=== PATIENT | female | born 1965 | race Caucasian/White ===

== ENCOUNTER 2019-03-08 16:42 | Inpatient (IN) ==
--- NOTE | 2019-03-08 17:29 | Emergency Department Note ---
Entered by Arun Fernandes acting as a scribe for Morales Devine MD History of Present Illness General Chief complaint: Mental Health Evaluation Stated complaint: MENTAL HEALTH EVAL Time Seen by Provider: 03/08/19 16:54 Source: patient History of Present Illness Onset (ago): month(s) 5 Location: head (suicidal ideations with a plan) Pain Consistency: + intermittent Maximum Pain Intensity: 7 Exacerbated By: + other (recent loss of loved ones) Associated symptoms: + denies other symptoms (depression, hopelessness), + fever/chills, + headaches, + nausea/vomiting (positive nausea, negative vo miting) and + other (panic attacks, cramping) The patient is a 54 year old F who presents to the Emergency Room with complaints of intermittent intermittent suicidal ideations with a plan that started 5 months ago. The patient states that she has a history of PTSD and anxiety. She notes that her problems are worsened due to her experiencing recent loss of her daughter, mother, aunt, and clients. 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 She notes that she has started to see a grief counselor. She states that she was recently on medications prescribed to her by her PCP for her symptoms. She adds that she was taken off of them two weeks ago because she did not like the side-effects. She notes that she was referred to the ED today by her therapist. She states that she is currently experiencing panic attacks, fever, chills, headaches, nausea, and cramping. She denies experiencing depression and hopelessness. She states that she does not want to state her suicidal plan but gives an example that she would drive her car very fast and crash. She notes that the last time she tried to hurt herself was in high school by drinking a lot of alcohol. She adds that the last time she was hospitalized was in high school. Home Medications Home Medications Medication Instructions Recorded Confirmed Type albuterol sulfate HFA 90 2 puffs INH QID PRN #6.7 gm 02/26/19 03/08/19 Rx mcg/actuation aerosol inhaler escitalopram 10 mg tablet 10 mg PO DAILY #30 tab 02/26/19 03/08/19 Rx fluticasone propionate 110 1 puffs INH BID #12 gm 02/26/19 03/08/19 Rx mcg/actuation HFA aerosol inhaler montelukast 10 mg tablet 10 mg PO QPM #90 tab 02/26/19 03/08/19 Rx naproxen 500 mg tablet 500 mg PO Q12H PRN #60 tab 02/26/19 03/08/19 Rx omeprazole 20 mg capsule,delayed 20 mg PO DAILY #90 cap 02/26/19 03/08/19 Rx release tramadol 50 mg tablet 50 mg PO BID PRN #60 tab 02/26/19 03/08/19 Rx Allergies Allergy/AdvReac Type Severity Reaction Status Date / Time No Known Allergies Allergy Verified 03/08/19 17:20 Past Med/Surg History Medical History Anxiety (Chronic) PTSD (post-traumatic stress disorder) (Chronic) Family History Other No significant family history Social History Preferred Language: Uzbek Communication Ability: Effective Reducing System Operator Required: No Beliefs That Will Affect Care: None Feels Safe at Home: Yes Smoking Status: Never smoker Review of Systems See HPI for pertinent positives & negatives. and A total of 10 systems reviewed and were otherwise negative Physical Exam Vital Signs Vital Signs - 24 hr 03/08/19 16:46 03/08/19 19:00 Temperature 36.9 C Temperature Source Oral Sepsis Recent Fever Within 48 Hours No Sepsis New/Unexplained Change in Mental Status No Sepsis Action Taken by Nursing No Action Required Pulse Rate 109 H Pulse Rate [Right Finger] 90 Respiratory Rate 18 20 Blood Pressure 149/91 H Blood Pressure [Right Arm] 140/74 Blood Pressure Mean 110 Blood Pressure Mean [Right Arm] 96 Pulse Oximetry 97 97 Oxygen Delivery Method Room Air Room Air GENERAL: Awake, alert, melancholy appearing, no distress HENT: Normocephalic, atraumatic. TM's normal. Oropharynx unremarkable. EYES: PERRL. EOMI. Normal conjunctiva. Sclera non-icteric. NECK: Supple. No nuchal rigidity. FROM. No JVD or bruit. RESPIRATORY: CTAB CARDIAC: RRR. ABDOMEN: Soft, non distended. No tenderness to palpation. No rebound or guarding. No masses. RECTAL: Deferred. MUSCULOSKELETAL: Unremarkable. No edema. No discoloration. Gross motor strength symmetric. NEURO: Normal sensorium. No sensory or motor deficits noted. SKIN: No rash or jaundice noted. LYMPH: No adenopathy psych: depressed affect, positive suicidal ideation and plan, yet denies hopeless and depression Course 1658: The patient was evaluated in room A7. A complete history and physical exam was performed. 1839: I medically cleared the patient. 1937: The patient has been accepted for inpatient treatment at [address] [place] [address]. Administered Medications Fluticasone Propionate (Flovent Hfa 110mch) 1 puffs INH BID ISAIAH Stop: 04/07/19 20:59 Last Admin: 03/08/19 22:04 Dose: 1 puffs Documented by: [id number] Montelukast Sodium (Singulair) 10 mg PO QPM ISAIAH Stop: 04/07/19 20:59 Last Admin: 03/08/19 22:06 Dose: 10 mg Documented by: [id number] Naproxen (Naprosyn) 500 mg PO Q12H PRN PRN Reason: pain Stop: 04/07/19 19:23 Last Admin: 03/08/19 22:05 Dose: 500 mg Documented by: [id number] Medical Decision Making Differential Diagnosis Differential diagnosis includes: mood disorder, infection, hypoglycemia, electrolyte abnormalities, cardiac sources, intracerebral event, toxicologic, ne urologic, as well as others were entertained. Medical Records Attestation: I reviewed the patient's medical records. Home Medications Current Medication List: was personally reviewed by me Laboratory Data Attestation: I reviewed the patient's lab results. Result diagrams: 03/08/19 17:30 03/08/19 17:30 Lab Results 03/08/19 03/08/19 03/08/19 Range/Units 17:28 17:28 17:30 WBC 8.67 (4.8-10.8) K/uL RBC 5.33 (4.2-5.4) M/uL Hgb 15.2 (12.0-16.0) g/dL Hct 44.6 (37-47) % MCV 83.7 (80-100) fL MCH 28.5 (25-34) pg MCHC 34.1 (32-36) g/dL RDW Std Deviation 39.9 (36.4-46.3) fL RDW Coeff of Vale 13.4 (11.5-14.5) % Plt Count 295 (130-400) K/uL MPV 9.1 (7.4-10.4) fL Immature Gran % (Auto) 0.3 % Neut % (Auto) 71.7 % Lymph % (Auto) 19.1 % Luce % (Auto) 6.7 % Eos % (Auto) 2.0 % Baso % (Auto) 0.2 % Immature Gran # (Auto) 0.03 H (0.00-0.02) K/uL Neut # (Auto) 6.21 (1.4-6.5) K/uL Lymph # (Auto) 1.66 (1.2-3.4) K/uL Luce # (Auto) 0.58 (0.11-0.59) K/uL Eos # (Auto) 0.17 (0-0.5) K/uL Baso # (Auto) 0.02 (0-0.2) K/uL Sodium (136-145) mmol/L Potassium (3.5-5.1) mmol/L Chloride (98-107) mmol/L Carbon Dioxide (21-32) mmol/L Anion Gap (3-11) BUN (7-18) mg/dl Creatinine (0.6-1.2) mg/dl Est Cr Clr Drug Dosing ml/min Est GFR ( Amer) Est GFR (Non-Af Amer) BUN/Creatinine Ratio (10-20) Glucose (70-99) mg/dl Calcium (8.5-10.1) mg/dl Total Bilirubin (0.2-1) mg/dl AST (15-37) U/L ALT (12-78) U/L Alkaline Phosphatase (45-117) U/L Total Protein (6.4-8.2) gm/dl Albumin (3.4-5.0) gm/dl Globulin (2.5-4.0) gm/dl Albumin/Globulin Ratio (0.9-2) TSH (0.300-4.500) uIu/ml HCG, Qual (Negative) Urine Color Yellow Urine Appearance Clear (Clear) Urine pH 6.5 (4.5-7.5) Ur Specific Alanson 1.009 (1.000-1.030) Urine Protein Negative (Negative) Urine Glucose (UA) Negative (Negative) Urine Ketones Negative (Negative) Urine Blood 2+ H (Negative) Urine Nitrite Negative (Negative) Urine Bilirubin Negative (Negative) Urine Urobilinogen Negative (Negative) Ur Leukocyte Esterase Negative (Negative) Urine WBC (Auto) 1-5 (0-5) /hpf Urine RBC (Auto) 0-4 (0-4) /hpf U Hyaline Cast (Auto) 0 (0-5) /lpf U Epithel Cells (Auto) 5-10 H (0-5) /lpf Urine Bacteria (Auto) Negative (Negative) Salicylates (2.8-20) mg/dl Urine Opiates Screen Neg (Neg) Ur Methadone, Qual Neg (Neg) Acetaminophen (10-30) ug/ml Urine Barbiturates Neg (Neg) Ur Phencyclidine (PCP) Neg (Neg) U Amphetamin/Meth Scrn Neg (Neg) MDMA (Ecstasy) Screen Neg (Neg) U Benzodiazepines Scrn Neg (Neg) Ur Cocaine Metabolite Neg (Neg) U Marijuana (THC) Screen Neg (Neg) Ethyl Alcohol mg/dL (0-3) mg/dl 03/08/19 03/08/19 03/08/19 Range/Units 17:30 17:30 17:30 WBC (4.8-10.8) K/uL RBC (4.2-5.4) M/uL Hgb (12.0-16.0) g/dL Hct (37-47) % MCV (80-100) fL MCH (25-34) pg MCHC (32-36) g/dL RDW Std Deviation (36.4-46.3) fL RDW Coeff of Vale (11.5-14.5) % Plt Count (130-400) K/uL MPV (7.4-10.4) fL Immature Gran % (Auto) % Neut % (Auto) % Lymph % (Auto) % Luce % (Auto) % Eos % (Auto) % Baso % (Auto) % Immature Gran # (Auto) (0.00-0.02) K/uL Neut # (Auto) (1.4-6.5) K/uL Lymph # (Auto) (1.2-3.4) K/uL Luce # (Auto) (0.11-0.59) K/uL Eos # (Auto) (0-0.5) K/uL Baso # (Auto) (0-0.2) K/uL Sodium 137 (136-145) mmol/L Potassium 4.5 (3.5-5.1) mmol/L Chloride 102 (98-107) mmol/L Carbon Dioxide 31 (21-32) mmol/L Anion Gap 4.0 (3-11) BUN 19 H (7-18) mg/dl Creatinine 1.10 (0.6-1.2) mg/dl Est Cr Clr Drug Dosing 58.9 ml/min Est GFR ( Amer) 65.5 Est GFR (Non-Af Amer) 56.5 BUN/Creatinine Ratio 17.0 (10-20) Glucose 104 H (70-99) mg/dl Calcium 9.4 (8.5-10.1) mg/dl Total Bilirubin 0.4 (0.2-1) mg/dl AST 19 (15-37) U/L ALT 23 (12-78) U/L Alkaline Phosphatase 125 H (45-117) U/L Total Protein 8.1 (6.4-8.2) gm/dl Albumin 4.5 (3.4-5.0) gm/dl Globulin 3.6 (2.5-4.0) gm/dl Albumin/Globulin Ratio 1.3 (0.9-2) TSH 1.200 (0.300-4.500) uIu/ml HCG, Qual (Negative) Urine Color Urine Appearance (Clear) Urine pH (4.5-7.5) Ur Specific Alanson (1.000-1.030) Urine Protein (Negative) Urine Glucose (UA) (Negative) Urine Ketones (Negative) Urine Blood (Negative) Urine Nitrite (Negative) Urine Bilirubin (Negative) Urine Urobilinogen (Negative) Ur Leukocyte Esterase (Negative) Urine WBC (Auto) (0-5) /hpf Urine RBC (Auto) (0-4) /hpf U Hyaline Cast (Auto) (0-5) /lpf U Epithel Cells (Auto) (0-5) /lpf Urine Bacteria (Auto) (Negative) Salicylates < 1.7 L (2.8-20) mg/dl Urine Opiates Screen (Neg) Ur Methadone, Qual (Neg) Acetaminophen < 2 L (10-30) ug/ml Urine Barbiturates (Neg) Ur Phencyclidine (PCP) (Neg) U Amphetamin/Meth Scrn (Neg) MDMA (Ecstasy) Screen (Neg) U Benzodiazepines Scrn (Neg) Ur Cocaine Metabolite (Neg) U Marijuana (THC) Screen (Neg) Ethyl Alcohol mg/dL < 3.0 (0-3) mg/dl 03/08/19 Range/Units 17:30 WBC (4.8-10.8) K/uL RBC (4.2-5.4) M/uL Hgb (12.0-16.0) g/dL Hct (37-47) % MCV (80-100) fL MCH (25-34) pg MCHC (32-36) g/dL RDW Std Deviation (36.4-46.3) fL RDW Coeff of Vale (11.5-14.5) % Plt Count (130-400) K/uL MPV (7.4-10.4) fL Immature Gran % (Auto) % Neut % (Auto) % Lymph % (Auto) % Luce % (Auto) % Eos % (Auto) % Baso % (Auto) % Immature Gran # (Auto) (0.00-0.02) K/uL Neut # (Auto) (1.4-6.5) K/uL Lymph # (Auto) (1.2-3.4) K/uL Luce # (Auto) (0.11-0.59) K/uL Eos # (Auto) (0-0.5) K/uL Baso # (Auto) (0-0.2) K/uL Sodium (136-145) mmol/L Potassium (3.5-5.1) mmol/L Chloride (98-107) mmol/L Carbon Dioxide (21-32) mmol/L Anion Gap (3-11) BUN (7-18) mg/dl Creatinine (0.6-1.2) mg/dl Est Cr Clr Drug Dosing ml/min Est GFR ( Amer) Est GFR (Non-Af Amer) BUN/Creatinine Ratio (10-20) Glucose (70-99) mg/dl Calcium (8.5-10.1) mg/dl Total Bilirubin (0.2-1) mg/dl AST (15-37) U/L ALT (12-78) U/L Alkaline Phosphatase (45-117) U/L Total Protein (6.4-8.2) gm/dl Albumin (3.4-5.0) gm/dl Globulin (2.5-4.0) gm/dl Albumin/Globulin Ratio (0.9-2) TSH (0.300-4.500) uIu/ml HCG, Qual Negative (Negative) Urine Color Urine Appearance (Clear) Urine pH (4.5-7.5) Ur Specific Alanson (1.000-1.030) Urine Protein (Negative) Urine Glucose (UA) (Negative) Urine Ketones (Negative) Urine Blood (Negative) Urine Nitrite (Negative) Urine Bilirubin (Negative) Urine Urobilinogen (Negative) Ur Leukocyte Esterase (Negative) Urine WBC (Auto) (0-5) /hpf Urine RBC (Auto) (0-4) /hpf U Hyaline Cast (Auto) (0-5) /lpf U Epithel Cells (Auto) (0-5) /lpf Urine Bacteria (Auto) (Negative) Salicylates (2.8-20) mg/dl Urine Opiates Screen (Neg) Ur Methadone, Qual (Neg) Acetaminophen (10-30) ug/ml Urine Barbiturates (Neg) Ur Phencyclidine (PCP) (Neg) U Amphetamin/Meth Scrn (Neg) MDMA (Ecstasy) Screen (Neg) U Benzodiazepines Scrn (Neg) Ur Cocaine Metabolite (Neg) U Marijuana (THC) Screen (Neg) Ethyl Alcohol mg/dL (0-3) mg/dl ECG Data Attestation: I personally reviewed and interpreted this ECG as follows: Indication: other (suicidal ideation) Rate (beats per minute): 85 Rhythm: normal sinus Findings: + other (normal axis); no acute ischemic change Blood Pressure Blood Pressure Findings: Normal blood pressure Blood Pressure Disposition: did not require urgent referral MDM Narrative The patient is a pleasant 54-year-old woman with a past medical history of PTSD, anxiety and depression who presents emergency department with worsening thoughts of suicidal ideation with plan referred to emergency department by her therapist per hpi. Of note, patient reports her symptoms have worsened to the degree that she does not trust herself and asked her friend to drive her to the hospital as one possible plan she had mention was driving recklessly without care of what could have been. Arrival the patient is melancholy appearing but no acute distress, afebrile stable vital signs. Patient has a depressed affect and reports suicidal ideation with multiple possible plans. However, the patient denies any overt depression or hopelessness. However she does become tearful when discussing the recent deaths over the past 6 months of friends and family and clients. I discussed with patient that her symptoms are concerning and that her situation certainly warrants inpatient psychiatric admission. After some deliberation the patient reported she would be agreeable. However should the patient change her mind she certainly would meet criteria for a 302 admission given her clear risk to herself as well as others. WBC, H/H, platelets wnl. Chemistry without acidosis. LFTs and electrolytes unremarkable. UA negative. The patient was medically cleared. The patient was accepted to [facility] [address]. under vol untary admission with 201 signed. Impression & Plan Suicidal ideation Discharge Plan Visit Data *Final* Discharge Date/Time: 03/08/19 19:31 Chief Complaint: Mental Health Evaluation Stated Complaint: MENTAL HEALTH EVAL ED Provider: Morales Devine Discharge Problem: Suicidal ideation Patient Disposition: Admitted As Inpatient Discharge Instructions Interventions: ED Discharge Assessment Last Done: 03/08/19 19:31 The scribe's documentation has been prepared under my direction and personally reviewed by me in its entirety. I confirm that the note above accurately reflects all work, treatment, procedures, and medical decision making performed by me.
[2019-03-08 17:45] LABS: Appearance Urine Clear (Clear); Bacteria Urine Automated Negative (Negative); Bilirubin Urine Negative (Negative); Blood Urine 2+ (Negative); Cast Urine Automated 0 /lpf (0-5); Color Urine Yellow; Glucose Urine UA Negative (Negative); Ketones Urine Negative (Negative); Leukocyte Esterase Urine Negative (Negative); Nitrite Urine Negative (Negative); Protein Urine Negative (Negative); RBC Urine Automated 0-4 /hpf (0-4); Specific Gravity Urine 1.009 (1.000-1.030); Urobilinogen Urine Negative (Negative); pH Urine 6.5 (4.5-7.5)
[2019-03-08 17:56] LABS: Basophils # (auto) 0.02 K/uL (0-0.2); Basophils % (auto) 0.2 %; Eosinophils # (auto) 0.17 K/uL (0-0.5); Hematocrit (blood only) 44.6 % (37-47); Hemoglobin 15.2 g/dL (12.0-16.0); Immature Granulocytes # (auto) 0.03 K/uL (0.00-0.02); Immature Granulocytes % (auto) 0.3 %; Lymphocytes # (auto) 1.66 K/uL (1.2-3.4); Lymphocytes % (auto) 19.1 %; Mean Corpuscular Hgb Conc 34.1 g/dL (32-36); Mean Corpuscular Volume 83.7 fL (80-100); Mean Platelet Volume 9.1 fL (7.4-10.4); Monocytes # (auto) 0.58 K/uL (0.11-0.59); Monocytes % (auto) 6.7 %; Neutrophils # (auto) 6.21 K/uL (1.4-6.5); Neutrophils % (auto) 71.7 %; Platelet Count 295 K/uL (130-400); RDW Coefficient of Variation 13.4 % (11.5-14.5); RDW Standard Deviation 39.9 fL (36.4-46.3); Red Blood Count 5.33 M/uL (4.2-5.4); White Blood Count 8.67 K/uL (4.8-10.8)
[2019-03-08 18:01] LABS: Amphetamines+Metham, Urine Neg (Neg); Barbiturates, Urine Neg (Neg); Benzodiazepine, Urine Neg (Neg); Cocaine, Urine Neg (Neg); MDMA (Ecstacy), Urine Neg (Neg); Methadone, Urine Neg (Neg); Opiate, Urine Neg (Neg); Phencyclidine, Urine Neg (Neg)
[2019-03-08 18:07] LABS: Albumin Level 4.5 gm/dl (3.4-5.0); Calcium 9.4 mg/dl (8.5-10.1); Creatinine Clr Calc Pharmacy 58.9 ml/min; Est GFR (African American) 65.5; Est GFR (Non-African American) 56.5; Potassium 4.5 mmol/L (3.5-5.1)
[2019-03-08 18:11] LABS: Pregnancy Test, Serum Negative (Negative)
[2019-03-08 18:13] LABS: Acetaminophen < 2 ug/ml (10-30); Salicylate < 1.7 mg/dl (2.8-20)
[2019-03-08 18:18] LABS: Albumin Globulin Ratio 1.3 (0.9-2); Bilirubin,Total 0.4 mg/dl (0.2-1); Globulin 3.6 gm/dl (2.5-4.0); Total Protein 8.1 gm/dl (6.4-8.2)
[2019-03-08] MEDS ORDERED: BISMUTH SUBSALICYLATE PER ML OMNICELL CHARGE PO PRN (19:21)
[2019-03-08] MEDS ORDERED: SODIUM CHLORIDE 0.65% NA SOLN 45 ML (OCEAN) PRN (19:21)
[2019-03-08] MEDS ORDERED: MAGNESIUM HYDROXIDE SUSP 30 ML UDC PO PRN (19:21)
[2019-03-08] MEDS ORDERED: ACETAMINOPHEN 325 MG TAB PO PRN (19:21)
[2019-03-08] MEDS ORDERED: ALUMINUM/MAGNESIUM SUSP 30 ML UDC PO PRN (19:21)
[2019-03-08] MEDS ORDERED: TRAMADOL HCL 50 MG TABLET PO PRN (19:24)
[2019-03-08] MEDS ORDERED: ALBUTEROL HFA 8 GM INHALER INH PRN (19:24)
[2019-03-08] MEDS: FLUTICASONE HFA 110MCG INHALER INH SCH (22:04)
[2019-03-08] MEDS: NAPROXEN 250 MG TAB PO PRN (22:05)
[2019-03-08] MEDS: MONTELUKAST SODIUM 10 MG TABLET PO SCH (22:06)
[2019-03-09] MEDS: FLUTICASONE HFA 110MCG INHALER INH SCH ×2 (07:53→18:42)
[2019-03-09] MEDS: PANTOprazole 40 MG TAB PO SCH (07:53)
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
[2019-03-09] MEDS: NAPROXEN 250 MG TAB PO PRN ×2 (11:31→21:37)
[2019-03-09] MEDS: ESCITALOPRAM OXALATE 10 MG TAB PO SCH (18:38)
[2019-03-09] MEDS: MONTELUKAST SODIUM 10 MG TABLET PO SCH (18:42)
[2019-03-10] MEDS: FLUTICASONE HFA 110MCG INHALER INH SCH ×2 (08:52→21:21)
[2019-03-10] MEDS: PANTOprazole 40 MG TAB PO SCH (08:52)
[2019-03-10] MEDS: NAPROXEN 250 MG TAB PO PRN (08:56)
--- NOTE | 2019-03-10 16:39 | Psychiatric Progress Note ---
Date of Service March 10, 2019 Impression / Recommendations Impression 54-year-old female admitted voluntarily for inpatient psychiatric treatment. Patient requested to sign her 72-hour notice within 24 hours of admission. As of 03/10/2019 patient acknowledges worsening suicidal ideation and unable to contract for safety outside of the hospital environment. She describes symptoms of likely PTSD but remains unwilling to disclose nature of trauma history. (1) Suicidal ideation: 03/09 - Admitted to a locked inpatient behavioral health unit, on q15 minute safety checks - Encourage medication initiation/adjustments as indicated - Encourage participation in group and recreational therapies - Gather collateral information from outpatient providers - Suggest family meeting to involve outpatient supports in safety planning - Arrange appropriate aftercare 03/10 -Patient now admits to worsening suicidal ideation and states "I cannot guarantee that I would not commit suicide" -Patient remains on voluntary status with 72-hour notice to come to on March 12 at 0910. Pending clinical status before that time, we may need to consider involuntary commitment if she is unwilling to rescind the 72-hour notice (2) Anxiety: 03/09 - Hydroxyzine available as needed for anxiety - Continue escitalopram 10mg qHS, patient hesitant to consider medication adjustments, anxiety improved with escitalopram - Will attempt to request records for more accurate med history; however, was seen several years ago at [facility] and case is likely closed - Develop healthy and effective coping strategies - Follow-up with PCP (as trusts provider) or outpatient psychiatrist for ongoing medication management (3) PTSD (post-traumatic stress disorder): 03/09 - Continue escitalopram 10mg qHS - Continue to assist patient in coping with previous trauma history - Assist with development of healthy and effective coping strategies - Recommending ongoing counseling on outpatient basis 03/10 -Trial Remeron 7.5 mg p.o. nightly for anxiolysis, sleep, off label GI benefit, and depression. -Patient would like to consider alternatives to the Lexapro as she fears that it has contributed to headaches and nausea. Available records so far indicate anxiety exacerbation with dose reduction trial. She is unable to recall prior treatment trials. We will see if we can obtain records from previous provider and in the meantime trialing the Remeron as above -We will plan to accommodate presence of a female friend for psychiatric interview tomorrow before the primary team returns on Tuesday to facilitate her comfort (4) Grief: 03/09 - Several recent deaths of close friends/family - mom, aunt, clients, mentor, and oriental orthodox members - Assist patient in processing grief and coping with loss - Encourage ongoing follow-up with outpatient grief counselor (5) History of recent fall: 03/09 - Continue home medications of naproxen and tramadol as needed for head and neck pain related to fall 03/10 -Reviewed medical progress note from Dr. Suarez's office regarding medical workup for fall and occipital head injury. Head CT on 02/27/19 negative. Given symptom cluster of headaches, nausea, cognitive fogginess, blurry vision, it sounds certainly possible that she has experienced some mild postconcussive symptomatology which could also be impacting mood. Inventory Assets Strengths: Supportive family, awareness of need for treatment, recent extended period of symptoms control off medications Needs: Development of effective coping strategies, ongoing processing of grief and loss, honest communication with /family Risk Factors Assessment Male: No : Yes Health Problems: No Mental Health Diagnoses: Yes Substance Use Disorders: No Previous Attempt: Yes (remote history in ) Previous Psychiatric Hospitalization: Yes Hopelessness: No Smoker: No Protective Factors Assessment Judaism Beliefs: Yes : Yes Responsible for Young Children: Yes (young adult children, grandson) 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 Review of Systems Notes Nausea without emesis, denies fever, denies diarrhea. Headaches. Sleep Information Total Hours of Sleep: 4.5 Sleep Comments: pt SHLOMO @0300 and thereafter. pt sat in the dayarea looking at her paperwork. pt states of not being sleepy. pt on q-15 minute checks Meal Information Percent Meal Consumed - Breakfast: 50 Percent Meal Consumed - Lunch: 100 Nutrition Comment: meal was dated and labeled, covered and refrigerated Medication Trials Unrecalled Subjective Subjective Patient was seen & assessed and interval progress reviewed with Treatment Team. Patient has signed 72-hour notice which will come due on the at 09 10. She has not been participating in unit programming. Isolating in her room. She initially refuses psychiatric reassessment today by male provider however she is ultimately willing in the company of her friend and female nursing staff. Interview conducted with therapeutic approach in mind. Patient remains unwilling to disclose the nature of her historical trauma which she states is eroding her marriage and causing her significant distress including nightmares, frequent waking feeling anxious overnight, and flashbacks when triggered. She describes efforts to avoid thinking about her trauma history but knows that she has to deal with it. She tells me that she had been doing very well emotionally before the of her mother last year followed shortly after by the of her aunt. She denies unfinished business with her loved ones. Subsequent to those losses her mood has been declining and she has been feeling more anxious. She acknowledges episodic suicidal ideation for years but has never acted on it. Suicidal ideation has worsened since admission and she states that she cannot guarantee that she would not try to commit suicide if she was outside of the hospital. As such, she acknowledges need for hospitalization presently and states that she signed the 72-hour notice because she felt panicked. Hopefully she will be willing to rescind this and maintain voluntary status. She complains that she felt "like a number" when involved in psychiatric care with unrecalled provider, possibly at [facility], several years ago. No records are available from that institution for review. She perceives herself as medication sensitive and believes she was tried on 6 or 7 psychotropic medications before she quit in the past secondary to side effects. She has found a positive therapeutic rapport with a grief counselor through her oriental orthodox. She expresses continued reluctance to see a male provider but was willing to see the undersigned again tomorrow in the presence of her friend who was highly encouraging. Physical Exam Psychiatric Orientation: alert and + guarded Apperance: appropriately dressed Eye Contact: + poor eye contact Motor Behavior: + psychomotor retardation Speech: normal rate/rhythm/volume of speech Affect: + tearful affect Mood: + depressed mood and + anxious mood Thought Process: goal directed thought process; no flight of ideas Thought Content: + preoccupation (Undisclosed trauma history. Negative for obvious delusions. 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 Does not disclose specific plan. Estimated Intelligence: average estimated intelligence Insight: + limited insight Judgement: + limited judgement Vital Signs (Past 24 Hours) Last Vital Signs Temp 36.6 C 03/10/19 06:15 Pulse 96 H 03/10/19 06:16 Resp 18 03/10/19 06:15 BP 120/76 03/10/19 06:16 Pulse Ox 97 03/08/19 19:00 Results & Data Current Inpatient Medications Current Inpatient Medications: Current Inpatient Medications Acetaminophen (Tylenol) 650 mg PO Q4H PRN PRN Reason: Headache or Minor Fever Stop: 04/07/19 19:20 Al Hydrox/Mg Hydrox/Simethicone (Maalox) 30 ml PO Q4H PRN PRN Reason: GI Upset Stop: 04/07/19 19:20 Last Admin: 03/10/19 05:21 Dose: 30 ml Documented by: Albuterol (Ventolin Hfa) 2 puffs INH QID PRN PRN Reason: shortness of breath or wheezing Stop: 04/07/19 19:23 Bismuth Subsalicylate (Kaopectate) 15 ml PO PRN PRN PRN Reason: Loose Stool Stop: 04/07/19 19:20 Escitalopram Oxalate (Lexapro) 10 mg PO 1900 [facility] Stop: 04/08/19 18:59 Last Admin: 03/09/19 18:38 Dose: 10 mg Documented by: Fluticasone Propionate (Flovent Hfa 110mch) 1 puffs INH BID ISAIAH Stop: 04/07/19 20:59 Last Admin: 03/10/19 08:52 Dose: 1 puffs Documented by: Hydroxyzine HCl (Vistaril) 50 mg PO HSZ PRN PRN Reason: Insomnia Stop: 04/07/19 19:20 Hydroxyzine HCl (Vistaril) 25 mg PO Q4H PRN PRN Reason: Anxiety Stop: 04/07/19 19:20 Magnesium Hydroxide (Milk Of Magnesia) 30 ml PO DAILY PRN PRN Reason: Heartburn Stop: 04/07/19 19:20 Montelukast Sodium (Singulair) 10 mg PO QPM ISAIAH Stop: 04/07/19 20:59 Last Admin: 03/09/19 18:42 Dose: 10 mg Documented by: Naproxen (Naprosyn) 500 mg PO Q12H PRN PRN Reason: pain Stop: 04/07/19 19:23 Last Admin: 06/22/19 08:56 Dose: 500 mg Documented by: Pantoprazole Sodium (Protonix) 40 mg PO QAM ISAIAH Stop: 04/08/19 08:59 Last Admin: 03/10/19 08:52 Dose: 40 mg Documented by: Sodium Chloride (Saline Nasal) 1 - 2 sprays NA PRN PRN PRN Reason: Nasal Dryness/Congestion Stop: 04/07/19 19:20 Tramadol HCl (Ultram) 50 mg PO BID PRN PRN Reason: pain Stop: 04/07/19 19:23 Post Discharge Appointments Primary Care Physician Name Of Family Doctor: [facility] - Dr. Florencia Suarez Primary Care Date of Appointment with PCP: 04/04/19 Time of Appointment with PCP: 11:30 a.m. Provider Appointment Comment: [address] [place] [address] [place] [address] Therapist Name of Therapist: Ingrid in [facility] - [facility] Therapist's Date of Therapist Appointment: 03/16/19 Time of Therapist Appointment: 3:00 p.m. Therapy Appointment Comment: [employer]/Portfolio Manager Name of It Investment/Portfolio Manager: None Contact Information Discharge Discharge Address: [address], [place] [address] CPT Code CPT Code 95362
[2019-03-10] MEDS: ESCITALOPRAM OXALATE 10 MG TAB PO SCH (19:35)
[2019-03-10] MEDS: MIRTAZAPINE TAB 15 MG TAB PO SCH (21:22)
[2019-03-10] MEDS: MONTELUKAST SODIUM 10 MG TABLET PO SCH (21:23)
[2019-03-11] MEDS: FLUTICASONE HFA 110MCG INHALER INH SCH ×2 (09:48→19:59)
[2019-03-11] MEDS: PANTOprazole 40 MG TAB PO SCH (09:48)
--- NOTE | 2019-03-11 12:55 | Psychiatric Progress Note ---
Date of Service March 11, 2019 Impression / Recommendations Impression 54-year-old female admitted voluntarily for inpatient psychiatric treatment. Patient requested to sign her 72-hour notice within 24 hours of admission. Onf 03/10/2019 patient acknowledged worsening suicidal ideation and unable to contract for safety outside of the hospital environment. She describes symptoms of likely PTSD but remains unwilling to disclose nature of trauma history. Despite efforts to accommodate her and help her feel safe she remains reluctant to participate with male provider. In considering her degree of affect, behavioral manipulations, and outside information as above, and underlying c luster B personality disorder also appearing more likely. (1) Suicidal ideation: 03/09 - Admitted to a locked inpatient behavioral health unit, on q15 minute safety checks - Encourage medication initiation/adjustments as indicated - Encourage participation in group and recreational therapies - Gather collateral information from outpatient providers - Suggest family meeting to involve outpatient supports in safety planning - Arrange appropriate aftercare 03/10 -Patient now admits to worsening suicidal ideation and states "I cannot guarantee that I would not commit suicide" -Patient remains on voluntary status with 72-hour notice to come to on March 12 at 0910. Pending clinical status before that time, we may need to consider involuntary commitment if she is unwilling to rescind the 72-hour notice 03/11 -Patient agrees to rescind the 72-hour notice today (2) Anxiety: 03/09 - Hydroxyzine available as needed for anxiety - Continue escitalopram 10mg qHS, patient hesitant to consider medication adjustments, anxiety improved with escitalopram - Will attempt to request records for more accurate med history; however, was seen several years ago at [facility] and case is likely closed - Develop healthy and effective coping strategies - Follow-up with PCP (as trusts provider) or outpatient psychiatrist for ongoing medication management (3) PTSD (post-traumatic stress disorder): 03/09 - Continue escitalopram 10mg qHS - Continue to assist patient in coping with previous trauma history - Assist with development of healthy and effective coping strategies - Recommending ongoing counseling on outpatient basis 03/10 -Trial Remeron 7.5 mg p.o. nightly for anxiolysis, sleep, off label GI benefit, and depression. -Patient would like to consider alternatives to the Lexapro as she fears that it has contributed to headaches and nausea. Available records so far indicate anxiety exacerbation with dose reduction trial. She is unable to recall prior treatment trials. We will see if we can obtain records from previous provider and in the meantime trialing the Remeron as above -We will plan to accommodate presence of a female friend for psychiatric interview tomorrow before the primary team returns on Tuesday to facilitate her comfort 03/11 -Tolerated first dose of Remeron last night with improved sleep. Will continue unchanged for now -Hopefully she has more engageable with a female provider who will be returning tomorrow. If not, she may require a more concrete behavior program (4) Grief: 03/09 - Several recent deaths of close friends/family - mom, aunt, clients, mentor, and quaker members - Assist patient in processing grief and coping with loss - Encourage ongoing follow-up with outpatient grief counselor (5) History of recent fall: 03/09 - Continue home medications of naproxen and tramadol as needed for head and neck pain related to fall 03/10 -Reviewed medical progress note from Dr. Suarez's office regarding medical workup for fall and occipital head injury. Head CT on 02/27/19 negative. Given symptom cluster of headaches, nausea, cognitive fogginess, blurry vision, it sounds certainly possible that she has experienced some mild postconcussive symptomatology which could also be impacting mood. Inventory Assets Strengths: Supportive family, awareness of need for treatment, recent extended period of symptoms control off medications Needs: Development of effective coping strategies, ongoing processing of grief and loss, honest communication with /family Risk Factors Assessment Male: No : Yes Health Problems: No Mental Health Diagnoses: Yes Substance Use Disorders: No Previous Attempt: Yes (remote history in ) Previous Psychiatric Hospitalization: Yes Hopelessness: No Smoker: No Protective Factors Assessment Congregation Beliefs: Yes : Yes Responsible for Young Children: Yes (young adult children, grandson) 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 Review of Systems Notes denies dizziness Sleep Information Total Hours of Sleep: 6.5 Sleep Comments: pt on q-15 minute checks Meal Information Percent Meal Consumed - Breakfast: 50 Percent Meal Consumed - Lunch: 100 Percent Meal Consumed - Dinner: 50 Nutrition Comment: meal was dated and labeled, covered and refrigerated Medication Trials Unrecalled Subjective Subjective Patient was seen & assessed and interval progress reviewed with Treatment Team. Secondary to the patient's expressed anxiety associated with interacting with a male provider I agreed to see her today in the company of female staff and her friend, Jaz. Jaz wish to share some information with the treatment team this morning and she described her own perception that the patient likely has an underlying borderline personality disorder which she based on her observation of volatile interpersonal relationships, apparent repeated patterns of attention seeking behavior and highly draining and emotional reactions. She describes a history of a therapist abruptly leaving in the middle of the session with this patient because she was so "draining." She reports that she can also be highly loving and caring. Staff report that the patient attended no groups yesterday but was out for meals. Apparently she is comfortable speaking with her roommate. A male staff member reported to me that she abruptly fled the room when he tried to help her get her breakfast tray and did not eat. On interview which was conducted in the social work office with multiple additional persons as above, the patient was minimally participatory despite a great deal of encouragement. When asked if she would like to share anything for us to better understand her she replied "nothing." Ultimately she did endorse willingness to speak more openly with the female psychiatrist who will be returning tomorrow. She reported improved sleep with first dose of Remeron last evening and was willing to continue it. She was also willing to rescind her 72-hour notice. Medication Trials Unrecalled Physical Exam Mental Examination Appearance: Disheveled Eye Contact: No Eye Contact Motor Behavior: Slowed Speech: Soft and Poverty of Speech Mood: Anxious (pt refused to characterize) Affect: Blunted and Constricted (anxious but restrained) Thought Process: Slowed Thinking (appears slowed outwardly but difficult to appreciate as minimally participatory) Insight: Poor Judgement: Poor Vital Signs (Past 24 Hours) Last Vital Signs Temp 36.4 C L 03/11/19 06:54 Pulse 92 H 03/11/19 06:55 Resp 18 03/11/19 06:54 BP 110/76 03/11/19 06:55 Pulse Ox 97 03/08/19 19:00 Results & Data Current Inpatient Medications Current Inpatient Medications: Current Inpatient Medications Acetaminophen (Tylenol) 650 mg PO Q4H PRN PRN Reason: Headache or Minor Fever Stop: 04/07/19 19:20 Al Hydrox/Mg Hydrox/Simethicone (Maalox) 30 ml PO Q4H PRN PRN Reason: GI Upset Stop: 04/07/19 19:20 Last Admin: 03/10/19 05:21 Dose: 30 ml Documented by: Albuterol (Ventolin Hfa) 2 puffs INH QID PRN PRN Reason: shortness of breath or wheezing Stop: 04/07/19 19:23 Bismuth Subsalicylate (Kaopectate) 15 ml PO PRN PRN PRN Reason: Loose Stool Stop: 04/07/19 19:20 Escitalopram Oxalate (Lexapro) 10 mg PO 1900 ISAIAH Stop: 04/08/19 18:59 Last Admin: 03/10/19 19:35 Dose: 10 mg Documented by: Fluticasone Propionate (Flovent Hfa 110mch) 1 puffs INH BID ISAIAH Stop: 04/07/19 20:59 Last Admin: 03/11/19 09:48 Dose: 1 puffs Documented by: Hydroxyzine HCl (Vistaril) 50 mg PO HSZ PRN PRN Reason: Insomnia Stop: 04/07/19 19:20 Hydroxyzine HCl (Vistaril) 25 mg PO Q4H PRN PRN Reason: Anxiety Stop: 04/07/19 19:20 Magnesium Hydroxide (Milk Of Magnesia) 30 ml PO DAILY PRN PRN Reason: Heartburn Stop: 04/07/19 19:20 Mirtazapine (Remeron) 7.5 mg PO HS ISAIAH Stop: 04/09/19 21:59 Last Admin: 03/10/19 21:22 Dose: 7.5 mg Documented by: Montelukast Sodium (Singulair) 10 mg PO QPM ISAIAH Stop: 04/07/19 20:59 Last Admin: 03/10/19 21:23 Dose: 10 mg Documented by: Naproxen (Naprosyn) 500 mg PO Q12H PRN PRN Reason: pain Stop: 04/07/19 19:23 Last Admin: 03/10/19 08:56 Dose: 500 mg Documented by: Pantoprazole Sodium (Protonix) 40 mg PO QAM ISAIAH Stop: 04/08/19 08:59 Last Admin: 03/11/19 09:48 Dose: 40 mg Documented by: Sodium Chloride ([place] Nasal) 1 - 2 sprays NA PRN PRN PRN Reason: Nasal Dryness/Congestion Stop: 04/07/19 19:20 Tramadol HCl (Ultram) 50 mg PO BID PRN PRN Reason: pain Stop: 04/07/19 19:23 Last Admin: 03/10/19 17:19 Dose: 50 mg Documented by: Post Discharge Appointments Primary Care Physician Name Of Family Doctor: ASCENCION Suarez Primary Care Date of Appointment with PCP: 04/04/19 Time of Appointment with PCP: 11:30 a.m. Provider Appointment Comment: [address] [place] [address] [place] [address] Therapist Name of Therapist: Ingrid in [facility] - [facility] Therapist's Date of Therapist Appointment: 03/16/19 Time of Therapist Appointment: 3:00 p.m. Therapy Appointment Comment: [place] [employer] Grinder Operator Name of Shot Grinder Operator: None Contact Information Discharge Discharge Address: [address] [place] [address], [place] [address] CPT Code CPT Code 32043
[2019-03-11] MEDS: NAPROXEN 250 MG TAB PO PRN (14:54)
[2019-03-11] MEDS: ESCITALOPRAM OXALATE 10 MG TAB PO SCH (19:59)
[2019-03-11] MEDS: MIRTAZAPINE TAB 15 MG TAB PO SCH (20:00)
[2019-03-11] MEDS: MONTELUKAST SODIUM 10 MG TABLET PO SCH (20:00)
[2019-03-12] MEDS: FLUTICASONE HFA 110MCG INHALER INH SCH ×2 (06:51→19:11)
[2019-03-12] MEDS: PANTOprazole 40 MG TAB PO SCH (08:26)
[2019-03-12] MEDS: NAPROXEN 250 MG TAB PO PRN ×2 (08:26→17:46)
--- NOTE | 2019-03-12 09:56 | Psychiatric Progress Note ---
Date of Service March 12, 2019 Impression / Recommendations Impression 54-year-old female admitted voluntarily for inpatient psychiatric treatment. Pt did rescind her 72-hour notice to leave treatment. Despite efforts to accommodate her and help her feel safe she remains reluctant to participate with male provider. In considering her degree of affect, behavioral manipulations, and outside information as above, and underlying cluster B personality disorder also appearing more likely. Maintain clear boundaries, consistency in expectations and visitation. Was estimated to have a short length of stay, and then disclosed plan to confront on a personal issue she has been holding in for over 20 years. This would be encouraged, as patient seems troubled by topic (though has not disclosed concerns) and verbalized that she would likely hurt herself after the conversation if it did not occur in a safe setting. Given likely presence of a personality disorder, other behavioral reports, and admission to having "the means for the past 10 years" it seems important to encourage this conversation. Attempt to encourage patient to begin processing this, and schedule family meeting with . Pt may require behavioral plan if she continues to be unengaged in group programming. (1) Suicidal ideation: 03/09 - Admitted to a locked inpatient behavioral health unit, on q15 minute safety checks - Encourage medication initiation/adjustments as indicated - Encourage participation in group and recreational therapies - Gather collateral information from outpatient providers - Suggest family meeting to involve outpatient supports in safety planning - Arrange appropriate aftercare 03/10 -Patient now admits to worsening suicidal ideation and states "I cannot guarantee that I would not commit suicide" -Patient remains on voluntary status with 72-hour notice to come to on March 12 at 0910. Pending clinical status before that time, we may need to consider involuntary commitment if she is unwilling to rescind the 72-hour notice 03/11 -Patient agrees to rescind the 72-hour notice today 03/12 - Denies active SI, but states she plans to discussing something difficult with her and does not trust herself not to hurt herself following this conversation (2) Anxiety: 03/09 - Hydroxyzine available as needed for anxiety - Continue escitalopram 10mg qHS, patient hesitant to consider medication adjustments, anxiety improved with escitalopram - Will attempt to request records for more accurate med history; however, was seen several years ago at [facility] and case is likely closed - Develop healthy and effective coping strategies - Follow-up with PCP (as trusts provider) or outpatient psychiatrist for ongoing medication management (3) PTSD (post-traumatic stress disorder): 03/09 - Continue escitalopram 10mg qHS - Continue to assist patient in coping with previous trauma history - Assist with development of healthy and effective coping strategies - Recommending ongoing counseling on outpatient basis 03/10 -Trial Remeron 7.5 mg p.o. nightly for anxiolysis, sleep, off label GI benefit, and depression. -Patient would like to consider alternatives to the Lexapro as she fears that it has contributed to headaches and nausea. Available records so far indicate anxiety exacerbation with dose reduction trial. She is unable to recall prior treatment trials. We will see if we can obtain records from previous provider and in the meantime trialing the Remeron as above -We will plan to accommodate presence of a female friend for psychiatric interview tomorrow before the primary team returns on Tuesday to facilitate her comfort 03/11 -Tolerated first dose of Remeron last night with improved sleep. Will continue unchanged for now -Hopefully she has more engageable with a female provider who will be returning tomorrow. If not, she may require a more concrete behavior program 03/12 - Continue current medication regimen, patient requesting to receive mirtazapine earlier in the evening, as experiencing some grogginess - Concern for several traits suggestive of a cluster B personality disorder, collateral from friend is concerning for this as well - firm requests for patient to attend groups and participate actively in treatment (4) Grief: 03/09 - Several recent deaths of close friends/family - mom, aunt, clients, mentor, and synagogue members - Assist patient in processing grief and coping with loss - Encourage ongoing follow-up with outpatient grief counselor (5) History of recent fall: 03/09 - Continue home medications of naproxen and tramadol as needed for head and neck pain related to fall 03/10 -Reviewed medical progress note from Dr. Suarez's office regarding medical workup for fall and occipital head injury. Head CT on 02/27/19 negative. Given symptom cluster of headaches, nausea, cognitive fogginess, blurry vision, it sounds certainly possible that she has experienced some mild postconcussive symptomatology which could also be impacting mood. Inventory Assets Strengths: Supportive family, awareness of need for treatment, recent extended period of symptoms control off medications Needs: Development of effective coping strategies, ongoing processing of grief and loss, honest communication with /family Risk Factors Assessment Male: No : Yes Health Problems: No Mental Health Diagnoses: Yes Substance Use Disorders: No Previous Attempt: Yes (remote history in HS) Previous Psychiatric Hospitalization: Yes Hopelessness: No Smoker: No Protective Factors Assessment Confucianist Beliefs: Yes : Yes Responsible for Young Children: Yes (young adult children, grandson) 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 Chief Complaint "I think over the weekend I was still trying to figure out, ok how did this happen? I think I get it now, I think it's good I'm here." Review of Systems Notes Constitutional: reports improvement in sleep, some grogginess this morning Cardiovascular: denied Respiratory: denied Gastrointestinal: denied Neurological: denied Psychiatric: denies symptoms other than stated above Total of at least 10 systems reviewed, pertinent positives as above and in HPI. Sleep Information Total Hours of Sleep: 7.25 Sleep Comments: pt on q-15 minute checks. Meal Information Percent Meal Consumed - Breakfast: 100 Percent Meal Consumed - Lunch: 100 Percent Meal Consumed - Dinner: 100 Nutrition Comment: meal was dated and labeled, covered and refrigerated Medication Trials Unrecalled Subjective Subjective Patient was seen & assessed and interval progress reviewed with Treatment Team. Staff reports the patient has been appearing somewhat more comfortable on the unit, but continues to isolate in her room at times. She required significant accommodations over the weekend to meet with the male on-call psychiatrist, and has had very limited group involvement. She is yet to schedule a family meeting with her , which seems to be the meeting that would be most beneficial for patient to have. Patient was seen today to assess progress since admission. She tolerated a meeting one-on-one with this female provider, and was open to discussing her weekend. Patient states that she has been attempting to understand why it is that she is here, but believes it is for the best. Patient continues to feel that her therapist had "panicked", but is understanding of the concern and feels she would have done something similar if it was her client. Patient states "what she does not understand is I've had the means for over 10 years." Patient states that she is now focusing on processing an event that it happened between herself and her "over 20 years ago now." Patient states "I do not think it is a 'we' concern yet, it still something for 'me' to work through." Patient states that she feels that she needs to discuss the event with her while on the unit as she feels "is the only thing that I have not opened up and looked at." Patient states that if she were to have this conversation with her at home, "there is a high possibility that I could try to hurt myself." Patient was encouraged to meet with our social service assistant today to process some of these thoughts, as it was recommended she have some continuity between the person she processes with and the person who would be assisting during the family meeting with her . Patient was also encouraged to be attending groups, as it is an expectation of treatment and is felt to be beneficial as she is processing some of these concerns. Patient denies other needs or concerns at this time. Medication Trials Unrecalled Physical Exam Psychiatric Orientation: alert, oriented x 3 and cooperative Apperance: appropriately dressed and appropriately groomed Eye Contact: good eye contact Motor Behavior: steady gait and station and no abnormal motor movements appearing less anxious than at initial admission Speech: normal rate/rhythm/volume of speech Affect: + anxious affect and + tearful affect Mood: + anxious mood ("I'm just scared, I'm very nervous to start teasing it all apart") Thought Process: goal directed thought process Thought Content: reality based without delusions Suicidal Thoughts: denies suicidal thoughts but is unable to contract for safety outside of the hospital setting Homicidal Thoughts: denies homicidal thoughts Hallucinations: no auditory hallucinations and no visual hallucinations Cognition: attention grossly intact and language grossly intact Estimated Intelligence: consistent with education level Insight: + poor insight Judgement: + poor judgement Vital Signs (Past 24 Hours) Last Vital Signs Temp 36.5 C 03/12/19 07:03 Pulse 93 H 03/12/19 07:04 Resp 18 03/12/19 07:03 BP 122/83 03/12/19 07:04 Pulse Ox 97 03/08/19 19:00 Results & Data Current Inpatient Medications Current Inpatient Medications: Current Inpatient Medications Acetaminophen (Tylenol) 650 mg PO Q4H PRN PRN Reason: Headache or Minor Fever Stop: 04/07/19 19:20 Al Hydrox/Mg Hydrox/Simethicone (Maalox) 30 ml PO Q4H PRN PRN Reason: GI Upset Stop: 04/07/19 19:20 Last Admin: 03/10/19 05:21 Dose: 30 ml Documented by: Albuterol (Ventolin Hfa) 2 puffs INH QID PRN PRN Reason: shortness of breath or wheezing Stop: 04/07/19 19:23 Bismuth Subsalicylate (Kaopectate) 15 ml PO PRN PRN PRN Reason: Loose Stool Stop: 04/07/19 19:20 Escitalopram Oxalate (Lexapro) 10 mg PO 1900 ISAIAH Stop: 04/08/19 18:59 Last Admin: 03/11/19 19:59 Dose: 10 mg Documented by: Fluticasone Propionate (Flovent Hfa 110mch) 1 puffs INH BID ISAIAH Stop: 04/07/19 20:59 Last Admin: 03/12/19 06:51 Dose: 1 puffs Documented by: Hydroxyzine HCl (Vistaril) 50 mg PO HSZ PRN PRN Reason: Insomnia Stop: 04/07/19 19:20 Hydroxyzine HCl (Vistaril) 25 mg PO Q4H PRN PRN Reason: Anxiety Stop: 04/07/19 19:20 Magnesium Hydroxide (Milk Of Magnesia) 30 ml PO DAILY PRN PRN Reason: Heartburn Stop: 04/07/19 19:20 Mirtazapine (Remeron) 7.5 mg PO 1900 ISAIAH Stop: 04/11/19 18:59 Montelukast Sodium (Singulair) 10 mg PO QPM ISAIAH Stop: 04/07/19 20:59 Last Admin: 03/11/19 20:00 Dose: 10 mg Documented by: Naproxen (Naprosyn) 500 mg PO Q12H PRN PRN Reason: pain Stop: 04/07/19 19:23 Last Admin: 06/24/19 08:26 Dose: 500 mg Documented by: Pantoprazole Sodium (Protonix) 40 mg PO QAM ISAIAH Stop: 04/08/19 08:59 Last Admin: 03/12/19 08:26 Dose: 40 mg Documented by: Sodium Chloride ([place] Nasal) 1 - 2 sprays NA PRN PRN PRN Reason: Nasal Dryness/Congestion Stop: 04/07/19 19:20 Tramadol HCl (Ultram) 50 mg PO BID PRN PRN Reason: pain Stop: 04/07/19 19:23 Last Admin: 03/10/19 17:19 Dose: 50 mg Documented by: Post Discharge Appointments Primary Care Physician Name Of Family Doctor: [facility] Date of Appointment with PCP: 04/04/19 Time of Appointment with PCP: 11:30 a.m. Provider Appointment Comment: [address] [place] [address] [place] [address] Therapist [facility] Date of Therapist Appointment: 03/16/19 Time of Therapist Appointment: 3:00 p.m. Therapy Appointment Comment: [place] Acetaldehyde Converter Operator Name of Acetaldehyde Converter Operator: None Contact Information Discharge Discharge Address: [address] [place] [address], [place] Chong [phone] CPT Code CPT Code 56952
[2019-03-12] MEDS: ESCITALOPRAM OXALATE 10 MG TAB PO SCH (19:09)
[2019-03-12] MEDS: MIRTAZAPINE TAB 15 MG TAB PO SCH (19:10)
[2019-03-12] MEDS: MONTELUKAST SODIUM 10 MG TABLET PO SCH (19:12)
[2019-03-13] MEDS: PANTOprazole 40 MG TAB PO SCH (09:08)
[2019-03-13] MEDS: FLUTICASONE HFA 110MCG INHALER INH SCH ×2 (09:08→19:17)
--- NOTE | 2019-03-13 12:05 | Psychiatric Progress Note ---
Date of Service March 13, 2019 Impression / Recommendations Impression 54-year-old female admitted voluntarily for inpatient psychiatric treatment. Pt did rescind her 72-hour notice to leave treatment, now stating it was under the assumption that she would stay longer to unpack her trauma history. Pt was educated on the purpose of acute inpatient psychiatric admissions, but was ensured we would continue to work toward ability to contract for safety - which she feels she is not currently able to do. In considering her degree of affect, behavioral manipulations, and outside information as above, and underlying cluster B personality disorder also appearing more likely. Maintain clear boundaries, consistency in expectations and visitation. Given likely presence of a personality disorder, other behavioral reports, and admission to having reported worsening SI since admission ongoing inpatient psychiatric treatment is necessary to ensure development of an adequate safety plan prior to discharge. Patient remains at high risk of harm to self if discharged prematurely, as she states she is unable to contract for safety outside of the hospital setting at this time. (1) Suicidal ideation: 03/09 - Admitted to a locked inpatient behavioral health unit, on q15 minute safety checks - Encourage medication initiation/adjustments as indicated - Encourage participation in group and recreational therapies - Gather collateral information from outpatient providers - Suggest family meeting to involve outpatient supports in safety planning - Arrange appropriate aftercare 03/10 -Patient now admits to worsening suicidal ideation and states "I cannot guarantee that I would not commit suicide" -Patient remains on voluntary status with 72-hour notice to come to on March 12 at 0910. Pending clinical status before that time, we may need to consider involuntary commitment if she is unwilling to rescind the 72-hour notice 03/11 -Patient agrees to rescind the 72-hour notice today 03/12 - Denies active SI, but states she plans to discussing something difficult with her and does not trust herself not to hurt herself following this conversation 03/13 - Today reports her SI has worsened and become more prevalent since admission, unable to contract for safety outside of hospital (2) Anxiety: 03/09 - Hydroxyzine available as needed for anxiety - Continue escitalopram 10mg qHS, patient hesitant to consider medication adjustments, anxiety improved with escitalopram - Will attempt to request records for more accurate med history; however, was seen several years ago at [facility] and case is likely closed - Develop healthy and effective coping strategies - Follow-up with PCP (as trusts provider) or outpatient psychiatrist for ongoing medication management (3) PTSD (post-traumatic stress disorder): 03/09 - Continue escitalopram 10mg qHS - Continue to assist patient in coping with previous trauma history - Assist with development of healthy and effective coping strategies - Recommending ongoing counseling on outpatient basis 03/10 -Trial Remeron 7.5 mg p.o. nightly for anxiolysis, sleep, off label GI benefit, and depression. -Patient would like to consider alternatives to the Lexapro as she fears that it has contributed to headaches and nausea. Available records so far indicate anxiety exacerbation with dose reduction trial. She is unable to recall prior treatment trials. We will see if we can obtain records from previous provider and in the meantime trialing the Remeron as above -We will plan to accommodate presence of a female friend for psychiatric interview tomorrow before the primary team returns on Tuesday to facilitate her comfort 03/11 -Tolerated first dose of Remeron last night with improved sleep. Will continue unchanged for now -Hopefully she has more engageable with a female provider who will be returning tomorrow. If not, she may require a more concrete behavior program 03/12 - Continue current medication regimen, patient requesting to receive mirtazapine earlier in the evening, as experiencing some grogginess - Concern for several traits suggestive of a cluster B personality disorder, collateral from friend is concerning for this as well - firm requests for patient to attend groups and participate actively in treatment 03/13 - Continue current medication regimen; patient provided with [employer] patient education materials on mirtazapine and escitalopram - Continue to work toward safety and aftercare planning, as patient's stressors are likely more amenable to outpatient treatment given long history of trauma and need to feels as though she can trust her providers completely (4) Grief: 03/09 - Several recent deaths of close friends/family - mom, aunt, clients, mentor, and religious members - Assist patient in processing grief and coping with loss - Encourage ongoing follow-up with outpatient grief counselor (5) History of recent fall: 03/09 - Continue home medications of naproxen and tramadol as needed for head and neck pain related to fall 03/10 -Reviewed medical progress note from Dr. Suarez's office regarding medical workup for fall and occipital head injury. Head CT on 02/27/19 negative. Given symptom cluster of headaches, nausea, cognitive fogginess, blurry vision, it sounds certainly possible that she has experienced some mild postconcussive symptomatology which could also be impacting mood. Inventory Assets Strengths: Supportive family, awareness of need for treatment, recent extended period of symptoms control off medications Needs: Development of effective coping strategies, ongoing processing of grief and loss, honest communication with /family Risk Factors Assessment Male: No : Yes Health Problems: No Mental Health Diagnoses: Yes Substance Use Disorders: No Previous Attempt: Yes (remote history in HS) Previous Psychiatric Hospitalization: Yes Hopelessness: No Smoker: No Protective Factors Assessment Anglican Beliefs: Yes : Yes Responsible for Young Children: Yes (young adult children, grandson) 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 Chief Complaint "Yesterday was a really good day. Did to have some unexpected visitors which was nice." Review of Systems Notes Constitutional: reports improved sleep last evening Cardiovascular: denied Respiratory: denied Gastrointestinal: denied Neurological: denied Psychiatric: denies symptoms other than stated above Total of at least 10 systems reviewed, pertinent positives as above and in HPI. Sleep Information Total Hours of Sleep: 7.5 Sleep Comments: pt appeared to sleep 1.5 hrs during evening shift. pt on q-15 minute checks Meal Information Percent Meal Consumed - Breakfast: 100 Percent Meal Consumed - Lunch: 100 Percent Meal Consumed - Dinner: 100 Nutrition Comment: meal was dated and labeled, covered and refrigerated Subjective Subjective Patient was seen & assessed and interval progress reviewed with Nursing. Staff reports the patient continues to attend groups episodically unconditionally, often leaving early. Patient has been encouraged to participate in group programming as a part of treatment, but remains somewhat hesitant for this. Patient was seen today to assess progress since admission. She states that she is feeling "okay." Patient states that the majority of the day yesterday was positive, reporting she received visits from her neighbor, friend, son, and . Patient does share with this provider that she attended group therapy yesterday afternoon and states "the group topic was really making me angry." Patient states that the group had discussed relationships, positive supports, and communicating needs to supports. Patient states "all this did was remind me of what I had lost" referring to her . Patient admits that she left group early, and reluctantly shares with this provider that she went to her room and "started banging my head against the wall, punching my head and pulling my hair I was just so angry I did not know what to do." Patient states that she is concerned about what her reaction would have been if not in the setting. She continues to feel that she is unable to contract for safety outside of the hospital at this time. Patient continues to reference an undisclosed event that occurred 20 years ago that she continues to harbor resentment for. Patient knows that it is necessary to discuss this event in further detail with her ; however, frequently states "I told him I cannot be around him when I do this, I am hypersensitive to facial expressions and body movements, I just cannot be around him and watch him go through that. I know that it will upset him, and devastate me." Discussed with patient that it may be more beneficial for her to process her thoughts towards this topic on an outpatient basis, with a therapist to continue to support her after the discussion as well. Reinforced to the patient that goals of acute hospitalization is safety and development of appropriate aftercare to which she states "and I do not feel like I am there yet." Patient reports that her suicidal thoughts have become "more prevalent" since admission to the hospital, and following group therapy yesterday she states she "wanted to get out and wanted to hurt myself." Patient denies other needs or concerns at this time. Physical Exam Psychiatric Orientation: alert, oriented x 3 and cooperative (superficially) Apperance: appropriately dressed (casually in t-shirt and rolled up scrub pants) and appropriately groomed Eye Contact: good eye contact Motor Behavior: steady gait and station and no abnormal motor movements Speech: normal rate/rhythm/volume of speech Affect: + anxious affect and + tearful affect Mood: + anxious mood Initially states she is "ok", then reports she is mentally "exhausted", states she does not feel she has been making progress Thought Process: goal directed thought process Thought Content: + cognitive distortions (likely, given suspicion for personlity components to diagnosis) Suicidal Thoughts: + reports suicidal thoughts (reports worsening of SI since admission, though no clear plan) Homicidal Thoughts: denies homicidal thoughts Hallucinations: no auditory hallucinations and no visual hallucinations Cognition: attention grossly intact and language grossly intact Estimated Intelligence: consistent with education level Insight: + poor insight (Likely a component of suspected personality disorder) Judgement: + poor judgement (Likely a component of suspected personality disorder) Vital Signs (Past 24 Hours) Last Vital Signs Temp 36.4 C L 03/13/19 06:45 Pulse 87 03/13/19 06:45 Resp 18 03/13/19 06:45 BP 128/78 03/13/19 06:45 Pulse Ox 97 03/08/19 19:00 Results & Data Current Inpatient Medications Current Inpatient Medications: Current Inpatient Medications Acetaminophen (Tylenol) 650 mg PO Q4H PRN PRN Reason: Headache or Minor Fever Stop: 04/07/19 19:20 Al Hydrox/Mg Hydrox/Simethicone (Maalox) 30 ml PO Q4H PRN PRN Reason: GI Upset Stop: 04/07/19 19:20 Last Admin: 03/10/19 05:21 Dose: 30 ml Documented by: Albuterol (Ventolin Hfa) 2 puffs INH QID PRN PRN Reason: shortness of breath or wheezing Stop: 04/07/19 19:23 Bismuth Subsalicylate (Kaopectate) 15 ml PO PRN PRN PRN Reason: Loose Stool Stop: 04/07/19 19:20 Escitalopram Oxalate (Lexapro) 10 mg PO 1900 [facility] Stop: 04/08/19 18:59 Last Admin: 03/12/19 19:09 Dose: 10 mg Documented by: Fluticasone Propionate (Flovent Hfa 110mch) 1 puffs INH BID ISAIAH Stop: 04/07/19 20:59 Last Admin: 03/13/19 09:08 Dose: 1 puffs Documented by: Hydroxyzine HCl (Vistaril) 50 mg PO HSZ PRN PRN Reason: Insomnia Stop: 04/07/19 19:20 Hydroxyzine HCl (Vistaril) 25 mg PO Q4H PRN PRN Reason: Anxiety Stop: 04/07/19 19:20 Magnesium Hydroxide (Milk Of Magnesia) 30 ml PO DAILY PRN PRN Reason: Heartburn Stop: 04/07/19 19:20 Mirtazapine (Remeron) 7.5 mg PO 1900 ISAIAH Stop: 04/11/19 18:59 Last Admin: 03/12/19 19:10 Dose: 7.5 mg Documented by: Montelukast Sodium (Singulair) 10 mg PO QPM ISAIAH Stop: 04/07/19 20:59 Last Admin: 03/12/19 19:12 Dose: 10 mg Documented by: Naproxen (Naprosyn) 500 mg PO Q12H PRN PRN Reason: pain Stop: 04/07/19 19:23 Last Admin: 03/12/19 17:46 Dose: 500 mg Documented by: Pantoprazole Sodium (Protonix) 40 mg PO QAM ISAIAH Stop: 04/08/19 08:59 Last Admin: 03/13/19 09:08 Dose: 40 mg Documented by: Sodium Chloride ([place] Nasal) 1 - 2 sprays NA PRN PRN PRN Reason: Nasal Dryness/Congestion Stop: 04/07/19 19:20 Tramadol HCl (Ultram) 50 mg PO BID PRN PRN Reason: pain Stop: 04/07/19 19:23 Last Admin: 03/10/19 17:19 Dose: 50 mg Documented by: Post Discharge Appointments Primary Care Physician Name Of Family Doctor: [facility] Date of Appointment with PCP: 04/04/19 Time of Appointment with PCP: 11:30 a.m. Provider Appointment Comment: [address] [place] [address] [place] [address] Therapist Name of Therapist: Ingrid in [place], [facility] Therapist's Date of Therapist Appointment: 03/16/19 Time of Therapist Appointment: 3:00 p.m. Therapy Appointment Comment: [place] Claims Supervisor Name of Claims Supervisor: None Contact Information Discharge Discharge Address: [address] [place] [address], [place], [place] [facility] CPT Code CPT Code 64385
[2019-03-13] MEDS: NAPROXEN 250 MG TAB PO PRN (15:04)
[2019-03-13] MEDS: ESCITALOPRAM OXALATE 10 MG TAB PO SCH (19:15)
[2019-03-13] MEDS: MIRTAZAPINE TAB 15 MG TAB PO SCH (19:15)
[2019-03-13] MEDS: MONTELUKAST SODIUM 10 MG TABLET PO SCH (19:16)
[2019-03-14] MEDS: PANTOprazole 40 MG TAB PO SCH (07:01)
[2019-03-14] MEDS: FLUTICASONE HFA 110MCG INHALER INH SCH (07:02)
--- NOTE | 2019-03-14 10:27 | Discharge Summary ---
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 Appointment Comment: [place] Purse Maker Name of Purse Maker: None Smoking Cessation Counseling Tobacco Cessation Medication Prescribed at Discharge: Not Applicable/Non-Smoker Contact Information Discharge Discharge Address: [address] [place] [id number] Discharge Plan Discharge Items Patient Disposition: Home - Self-Care Reason For Visit: PTSD,ANXIETY Discharge Diagnosis: PTSD Anxiety NOS Discharge Goals: Decrease discomfort, Improve disease control, Improve function, Learn about illness and Therapeutic intervention Activity: Per 'Additional Instructions' section Non-emergency contact: Primary Care Provider and Therapist Call non-emergency contact if: you have any medication questions and your symptoms worsen Follow-up/Referrals: Florencia Suarez MD [Primary Care Provider] - Diet: Regular Addtl Provider Instructions: SPECIAL CARE INSTRUCTIONS: 1. Follow through with your scheduled aftercare appointments. If unable to keep an appointment, please call to reschedule. We recommend follow up with a psychiatrist - you requested that your therapist make a referral for you. You can follow up with your PCP in the meantime. 2. Take your medication only as prescribed. Medication should not be changed or stopped without the approval of your doctor. In the event of worsening symptoms or concerns about side effects, contact your doctor immediately. 3. Utilize new healthy coping skills, anger management skills, and stress management skills learned during your hospitalization. Journal feelings and process them with a support person. Identify stressors or situations that may result in relapse, deterioration or inappropriate behaviors and develop a plan to deal with those issues. 4. If your coping skills are ineffective and you are in crisis, contact your outpatient providers for direction. If unable to reach your providers, please call the CAN HELP LINE AT or go to the closest Emergency Room. 5. Avoid alcohol and un-prescribed drugs. 6. You have been provided with the Mental Health Advance Directives Pamphlet for your review. AFTERCARE APPOINTMENTS: * Please call your insurance company prior to your scheduled appointment to confirm your aftercare providers are covered. Take your insurance information to your appointments. WHO TO CALL AND WHEN: Medical Emergencies: For questions or emergencies related to your hospital stay, please contact the Inpatient Behavioral Health Unit at [phone]. A marine structural designer is on-call 11/04 for the Behavioral Health Unit for emergencies At any time you feel your situation is an emergency, you may also call 911 immediately. Your Doctors Instructions noted above were prepared by provider Shayy Phan MD. Prescriptions: New mirtazapine 15 mg Tablet 7.5 mg PO 1900 Qty: 15 RF: 0 escitalopram oxalate [Lexapro] 10 mg tablet 10 mg PO DAILY Qty: 30 RF: 2 Continued Flovent HFA 110 mcg/actuation HFA aerosol inhaler 1 puffs INH BID Qty: 12 RF: 1 montelukast 10 mg tablet 10 mg PO QPM Qty: 90 RF: 3 naproxen 500 mg tablet 500 mg PO Q12H PRN (Reason: pain) Qty: 60 RF: 0 omeprazole 20 mg capsule,delayed release(DR/EC) 20 mg PO DAILY Qty: 90 RF: 3 albuterol sulfate [Proventil HFA] 90 mcg/actuation HFA aerosol inhaler 2 puffs INH QID PRN (Reason: shortness of breath or wheezing) Qty: 6.7 RF: 0 tramadol 50 mg tablet 50 mg PO BID PRN (Reason: pain) Qty: 60 RF: 0 Stand-Alone Forms: [facility] Discharge Orders: Discharge Order (Routine); Ordered 03/14/19 Ordered By: Shayy Phan Admission Data Admit Date/Time: 03/08/19 19:22 Attending Provider: Ubaldo Sauceda Admit Provider: Lacey Rivzi Primary Care Provider: Florencia Suarez Service: Psychiatry Other Interventions: PSY Interdisciplinary Discharge Planning Last Done: 03/14/19 11:39 Pending Studies at Discharge: No
== END 2019-03-14 14:55 | disposition home or self-care (01) | DRG 882 ==
LOC: ED 16:42 → 3S 19:22

== ENCOUNTER 2019-05-20 14:01 | Observation (INO) ==
[2019-05-20 15:09] LABS: Basophils # (auto) 0.01 K/uL (0-0.2); Basophils % (auto) 0.1 %; Eosinophils # (auto) 0.26 K/uL (0-0.5); Eosinophils % (auto) 3.2 %; Hematocrit (blood only) 37.6 % (37-47); Hemoglobin 12.6 g/dL (12.0-16.0); Immature Granulocytes % (auto) 1.2 %; Lymphocytes # (auto) 2.04 K/uL (1.2-3.4); Lymphocytes % (auto) 25.1 %; Mean Corpuscular Hemoglobin 28.2 pg (25-34); Mean Corpuscular Hgb Conc 33.5 g/dL (32-36); Mean Corpuscular Volume 84.1 fL (80-100); Mean Platelet Volume 8.8 fL (7.4-10.4); Monocytes # (auto) 0.56 K/uL (0.11-0.59); Monocytes % (auto) 6.9 %; Neutrophils # (auto) 5.17 K/uL (1.4-6.5); Neutrophils % (auto) 63.5 %; Platelet Count 234 K/uL (130-400); RDW Coefficient of Variation 13.1 % (11.5-14.5); RDW Standard Deviation 39.5 fL (36.4-46.3); Red Blood Count 4.47 M/uL (4.2-5.4); White Blood Count 8.14 K/uL (4.8-10.8)
[2019-05-20 15:32] LABS: Albumin Level 3.2 gm/dl (3.4-5.0); BUN Creatinine Ratio 17.3 (10-20); Calcium 8.2 mg/dl (8.5-10.1); Creatinine Clr Calc Pharmacy 64.6 ml/min; Est GFR (African American) 68.5; Est GFR (Non-African American) 59.1; Magnesium 1.9 mg/dl (1.8-2.4); Potassium 3.3 mmol/L (3.5-5.1)
[2019-05-20 15:49] LABS: Albumin Globulin Ratio 1.1 (0.9-2); Bilirubin,Total 0.2 mg/dl (0.2-1); Phosphorus 3.4 mg/dl (2.5-4.9); Thyroid Stimulating Hormone 1.99 uIu/ml (0.300-4.500); Total Protein 6.2 gm/dl (6.4-8.2); Troponin I 0.192 ng/ml (0-0.045)
--- NOTE | 2019-05-20 16:01 | XRay Report ---
XR chest 1V portable HISTORY: Atypical Chest Pain COMPARISON: Chest 05/15/2019. FINDINGS: No pneumothorax. No pleural effusions. A small right azygous node lobe is again noted. The heart is normal in size. No evidence for pulmonary edema. Near-complete resolution of the left basila r atelectasis. No new focal lung consolidations to suggest pneumonia. IMPRESSION: No acute process. Electronically signed by: Satish Turner M.D. 05/20/2019 3:59 PM
[2019-05-20] MEDS ORDERED: ASPIRIN CHEW 324 MG PO STA (16:08)
[2019-05-20] MEDS ORDERED: NITROGLYCERIN SL 0.4 MG/TAB TAB SL STA (16:54)
--- NOTE | 2019-05-20 18:11 | History & Physical Report ---
Date of Service May 20, 2019 Assessment & Plan (1) Shortness of breath: - She was evaluated on 05/15 for SOB/nausea/leg swelling after a long car trip but negative for DVT/PE and troponin on normal - treated for possible allergic element due to underlying asthma and cat exposure -- She completed a steroid taper with no improvement of symptoms - states she has chest pressure/tightness that feels similar to when she had pneumonia in the past - CTA from 05/15 and CXR without signs of pneumonia - Possibly cardiac and/or anxiety related - Symptoms did improve some with SL nitroglycerin in the ED - Continue Albuterol PRN; Singulair 10 mg HS (2) Elevated troponin: - Initial troponin of 0.192 and will continue to trend Q6H; possible NSTEMI - If troponin continues to rise then will start heparin gtt - Continue SL nitroglycerin PRN; if ongoing symptoms can convert to nitropaste - Obtain echo; Check lipid panel - Consult cardiology - appreciate further input or need for further testing Present on Admission?: Yes (3) Asthma: - No current exacerbation - Continue inhalers as above Present on Admission?: Yes (4) Anxiety: - STABLE - however reports a lot of stressors/deaths however she feels that she is in a better state then she has been and better managing her chronic issues with anxiety and PTSD - Continue Klonopin PRN; Lexapro 10 mg daily; and Trazadone PRN for sleep Present on Admission?: Yes History of Present Illness Chief Complaint: SOB Primary Care Provider: Florencia Suarez MD Ms. Santos is a 54 y/o female with PMHx of Anxiety and PTSD who presents to the ED c/o ongoing chest tightness and SOB. Patient was evaluated in ED on 05/15 for SOB, nausea, and lower extremity edema after traveling by car to [place] and [facility]. Workup was negative for DVT/PE and troponin was unremarkable. She was prescribed Prednisone for possibly allergic component given her underlying asthma and cat exposure which she reports an allergy to. However, symptoms have not improved with inhalers and prednisone. She states she was out to eat with her and continued to have chest pressure and tightness. She initially related this to her anxiety and panic attacks as she has been dealing with multiple family/friend stressors/deaths. Due to ongoing symptoms she presented to the ED this evening. Troponin was noted to be 0.192 and EKG without ischemic changes. She was given a loading dose of aspirin and SL NGT and did report some relief of her chest pressure. She denies any known personal cardiac issues and denies high cholesterol. She does report a father requiring CABG in early 40s and a brother who in his 40s from a heart attack. She also reports a nephew who in his 30s and she believes this was cardiac as well. Allergies Allergy/AdvReac Type Severity Reaction Status Date / Time No Known Allergies Allergy Verified 05/20/19 15:13 Home Medications Home Medications Medication Instructions Recorded Confirmed Type fluticasone propionate 110 1 puffs INH BID #12 gm 02/26/19 05/20/19 Rx mcg/actuation HFA aerosol inhaler naproxen 500 mg tablet 500 mg PO Q12H PRN #60 tab 02/26/19 05/20/19 Rx meloxicam 15 mg tablet 15 mg PO QAM 04/04/19 05/20/19 History montelukast 10 mg PO HS 05/15/19 05/20/19 History omeprazole 20 mg PO QAM 05/15/19 05/20/19 History trazodone 50 - 100 mg PO HS PRN 05/15/19 05/20/19 History albuterol sulfate HFA 90 2 puffs INH Q4H PRN #6.7 gm 05/16/19 05/20/19 Rx mcg/actuation aerosol inhaler escitalopram 10 mg tablet 10 mg PO DAILY #90 tab 05/17/19 05/20/19 Rx clonazepam [Klonopin] 0.5 mg PO BID PRN 05/20/19 05/20/19 History prednisone 60 mg PO .DAILY UD 05/20/19 05/20/19 History tramadol 75 mg PO BID PRN 05/20/19 05/20/19 History Past Med/Surg History Medical History Abnormal uterine bleeding (AUB) (Acute) Cluster B personality disorder (Chronic) Panic attacks (Chronic) Low back pain (Chronic) GERD (gastroesophageal reflux disease) (Chronic) Asthma (Chronic) Allergic rhinitis (Chronic) Anxiety (Chronic) PTSD (post-traumatic stress disorder) (Chronic) Surgical History History of bunionectomy Hx of tonsillectomy S/P appendectomy Family History Father Myocardial infarction Alcohol abuse Family/Other Alcohol abuse Cancer Mother Diabetes Cardiac disorder Brother Drug abuse Myocardial infarction Unknown Hypertension Other No significant family history Social History Preferred Language: Niuean Communication Ability: Effective Decal Maker Required: No Beliefs That Will Affect Care: None Current Living Situation: Spouse and Family Other Information That Helps Us Care for You: No Feels Safe at Home: Yes Safety Concerns: Feels Safe At This Time Smoking Status: Former smoker Hx Alcohol Use: Yes Alcohol type: wine Hx Substance Use: No Review of Systems Constitutional: no fever and no chills Eyes: no worsening vision Ear, Nose, Mouth, Throat: no nasal congestion, no sore throat and no dysphagia Respiratory: + dyspnea (intermittent - tightness); no cough Cardiovascular: + edema (intermittent b/l legs - improved today); no chest pain (but reports pressure/tightness), no radiating jaw, neck or arm pain and no lightheadedness Gastrointestinal: no abdominal pain, no nausea, no vomiting, no constipation and no diarrhea/loose stools Genitourinary: no dysuria Integumentary: no rash Physical Exam Constitutional: well developed and well nourished; no acute distress Eyes: + anicteric sclerae ENMT: Ears: no hearing impairment Neck: trachea midline Respiratory: normal respiratory effort, lungs clear to auscultation Cardiovascular: RRR, no murmur, no edema Gastrointestinal (Abdomen): Inspection/Auscultation: normal bowel sounds Percussion/Palpation: abdomen soft; abdomen nontender Musculoskeletal: no cyanosis or clubbing, extremities motor strength 5/5 Head/Neck/Chest: normocephalic and head atraumatic Skin: no rashes, warm and dry Neurologic: moves all extremities Psychiatric: A+Ox3, euthymic affect Results & Data Vital Signs (Past 12 Hours) Vital Signs Temp Pulse Pulse Resp BP BP Pulse Ox 05/20/19 17:01 132/79 05/20/19 16:01 93 H 16 110/64 98 09/01/19 15:03 98 05/20/19 14:39 98 05/20/19 14:12 36.5 C 102 H 20 171/100 H 98 Code Status & VTE Plan VTE Prophylaxis Plan VTE Prophylaxis will be ordered: Yes Supervising Physician Co-Signing Physician Notes Discussed with Cardiology Dr. Yap and he recommended to start Heparin Drip if troponin continues to trend up.CT head pending to clear for heparin drip. PG Care Time/CCT Total # of Minutes Spent Total Time Spent with Patient: Total time spent is greater than 50% in coordination of care (as documented) at patient's floor/unit and/or counseling patient:
[2019-05-20] MEDS ORDERED: ALBUTEROL HFA 8 GM INHALER INH PRN (19:10)
[2019-05-20] MEDS ORDERED: NITROGLYCERIN SL 0.4 MG/TAB TAB SL PRN (19:10)
[2019-05-20] MEDS ORDERED: ONDANSETRON INJ 2 MG/ML 2 ML VIAL IV PRN (19:10)
[2019-05-20] MEDS ORDERED: MAGNESIUM HYDROXIDE SUSP 30 ML UDC PO PRN (19:10)
[2019-05-20] MEDS ORDERED: POLYETHYLENE (MIRALAX) 17 GM PACK PO PRN (19:10)
[2019-05-20] MEDS ORDERED: ALUMINUM/MAGNESIUM SUSP 30 ML UDC PO PRN (19:10)
[2019-05-20] MEDS ORDERED: clonazePAM 0.5 MG TAB PO PRN (19:10)
[2019-05-20] MEDS ORDERED: Nursing to Pharmacy Communication ONE (20:22)
[2019-05-20] MEDS: ESCITALOPRAM OXALATE 10 MG TAB PO SCH (20:48)
[2019-05-20] MEDS: FLUTICASONE HFA 110MCG INHALER INH SCH (20:48)
[2019-05-20] MEDS: MONTELUKAST SODIUM 10 MG TABLET PO SCH (20:48)
[2019-05-20] MEDS: TRAZODONE HCL 50 MG TAB PO PRN (22:29)
[2019-05-21 02:09] LABS: INR 0.9 (0.9-1.1); Prothrombin Time 9.7 Seconds (9.0-12.0)
[2019-05-21] MEDS ORDERED: HEPARIN IV BOLUS 5,000 UNITS in SYRINGE 0 ML IV ONE (02:15)
[2019-05-21] MEDS: HEPARIN SODIUM/DEXTROSE 25,000 UNITS/500 ML BAG IV SCH ×2 (02:59→22:05)
[2019-05-21 03:20] LABS: Partial Thromboplastin Ratio 0.9; Partial Thromboplastin Time 24.5 Seconds (21.0-31.0)
[2019-05-21 03:34] LABS: Chol HDL Ratio 6; Cholesterol 246 mg/dl (0-200); HDL Cholesterol 39 mg/dl; Triglycerides 432 mg/dl (0-150)
--- NOTE | 2019-05-21 03:44 | Emergency Department Note ---
Entered by Aleisha Lilly acting as a scribe for Morales Devine MD History of Present Illness General Chief complaint: Shortness of Breath/Dyspnea Stated complaint: TROUBLE BREATHING Time Seen by Provider: 05/20/19 14:39 Source: patient History of Present Illness Provider complaint: shortness of breath Onset (ago): hour(s) (this morning) Location: chest Severity: similar to prior episodes Pain Consistency: + constant Associated symptoms: + chest pain, + cough and + other (+back pain) The patient is a 54 year old female who presents to the Emergency Room with complaints of constant shortness of breath starting this morning. The patient states that she has chest tightness and sharp mid back pain. She states that she cannot walk short distances without becoming short of breath. She states that she has a cough. She notes that she was recently at the ED and she finished her Prednisone yesterday. She notes that she has been experiencing a lack of sleep. She states that she called her PCP yesterday and they prescribed her Clonazepam. Home Medications Home Medications Medication Instructions Recorded Confirmed Type fluticasone propionate 110 1 puffs INH BID #12 gm 02/26/19 05/20/19 Rx mcg/actuation HFA aerosol inhaler naproxen 500 mg tablet 500 mg PO Q12H PRN #60 tab 02/26/19 05/20/19 Rx meloxicam 15 mg tablet 15 mg PO QAM 04/04/19 05/20/19 History montelukast 10 mg PO HS 05/15/19 05/20/19 History omeprazole 20 mg PO QAM 05/15/19 05/20/19 History trazodone 50 - 100 mg PO HS PRN 05/15/19 05/20/19 History albuterol sulfate HFA 90 2 puffs INH Q4H PRN #6.7 gm 05/16/19 05/20/19 Rx mcg/actuation aerosol inhaler escitalopram 10 mg tablet 10 mg PO DAILY #90 tab 05/17/19 05/20/19 Rx clonazepam [Klonopin] 0.5 mg PO BID PRN 05/20/19 05/20/19 History prednisone 60 mg PO .DAILY UD 05/20/19 05/20/19 History tramadol 75 mg PO BID PRN 05/20/19 05/20/19 History Allergies Allergy/AdvReac Type Severity Reaction Status Date / Time No Known Allergies Allergy Verified 05/20/19 15:13 Past Med/Surg History Medical History Abnormal uterine bleeding (AUB) (Acute) Cluster B personality disorder (Chronic) Panic attacks (Chronic) Low back pain (Chronic) GERD (gastroesophageal reflux disease) (Chronic) Asthma (Chronic) Allergic rhinitis (Chronic) Anxiety (Chronic) PTSD (post-traumatic stress disorder) (Chronic) Surgical History History of bunionectomy Hx of tonsillectomy S/P appendectomy Family History Father Myocardial infarction Alcohol abuse Family/Other Alcohol abuse Cancer Mother Diabetes Cardiac disorder Brother Drug abuse Myocardial infarction Unknown Hypertension Other No significant family history Social History Preferred Language: Japanese Communication Ability: Effective Senior International Tax Manager Required: No Beliefs That Will Affect Care: None Current Living Situation: Spouse and Family Other Information That Helps Us Care for You: No Feels Safe at Home: Yes Safety Concerns: Feels Safe At This Time Smoking Status: Former smoker Hx Alcohol Use: Yes Alcohol type: wine Hx Substance Use: No Review of Systems See HPI for pertinent positives & negatives. and A total of 10 systems reviewed and were otherwise negative Physical Exam Vital Signs Vital Signs - 24 hr 05/20/19 14:12 05/20/19 14:39 05/20/19 15:03 Temperature 36.5 C Temperature Source Oral Sepsis Recent Fever Within 48 Hours No Sepsis New/Unexplained Change in Mental Status No Sepsis Action Taken by Nursing No Action Required Pulse Rate 102 H Pulse Rate [Left Apical] Respiratory Rate 20 Respiratory Effort / Characteristics Non-Labored Spontaneous Respiratory Depth Normal Respiratory Pattern Regular Blood Pressure 171/100 H Blood Pressure [Left Arm] Blood Pressure Mean 123 Blood Pressure Mean [Left Arm] Blood Pressure Position Sitting Pulse Oximetry 98 98 98 Oxygen Delivery Method Room Air Room Air 05/20/19 16:01 05/20/19 17:01 05/20/19 18:25 Temperature Temperature Source Sepsis Recent Fever Within 48 Hours Sepsis New/Unexplained Change in Mental Status Sepsis Action Taken by Nursing Pulse Rate Pulse Rate [Left Apical] 93 H 85 Respiratory Rate 16 16 Respiratory Effort / Characteristics Respiratory Depth Respiratory Pattern Blood Pressure Blood Pressure [Left Arm] 110/64 132/79 122/79 Blood Pressure Mean Blood Pressure Mean [Left Arm] 79 96 93 Blood Pressure Position Pulse Oximetry 98 98 Oxygen Delivery Method Room Air Room Air GENERAL: Awake, alert, anxious-appearing, in no distress HENT: Normocephalic, atraumatic. Oropharynx with dry mucous membranes and otherwise unremarkable. EYES: Normal conjunctiva. Sclera non-icteric. NECK: Supple. No nuchal rigidity. FROM. No JVD. RESPIRATORY: Scant intermittent wheeze, otherwise clear. CARDIAC: Regular rate, normal rhythm. Extremities warm and well perfused. Pulses equal. ABDOMEN: Soft, non-distended. No tenderness to palpation. No rebound or guarding. No masses. RECTAL: Deferred. MUSCULOSKELETAL: Chest examination reveals no tenderness. The back is symmetrical on inspection without obvious abnormality. There is no CVA ten derness to palpation. No joint edema. LOWER EXTREMITIES: Calves are equal size bilaterally and non-tender. No edema. No discoloration. NEURO: Normal sensorium. No sensory or motor deficits noted. SKIN: No rash or jaundice noted. Course 1512: The patient was evaluated in room A10, and a complete history and physical examination were performed. 1615: I discussed the patient's case with Dr. Santoyo- [facility] Hospitalist, he will accept the patient for further evaluation. 1620: I discussed the patient's case with Dr. Yap- [facility] Cardiology, he recom mends holding of Heprin and if the patient's troponin arises then to administer it. Administered Medications Escitalopram Oxalate (Lexapro Tab) 10 mg PO HS [facility] Stop: 06/19/19 20:59 Last Admin: 05/20/19 20:48 Dose: 10 mg Documented by: [id number] Fluticasone Propionate (Flovent Hfa 110h) 1 puffs INH BID [facility] Stop: 06/19/19 20:59 Last Admin: 05/20/19 20:48 Dose: 1 puffs Documented by: [id number] Heparin Sodium/Dextrose (Heparin Sodium/Dextrose) 25,000 units in 500 mls @ 24 mls/hr IV .[id number] [facility]; Protocol Stop: 06/20/19 01:44 Last Admin: 05/21/19 02:59 Dose: 1,200 units/hr, 24 mls/hr Documented by: [id number] Cosigned by: [id number] Montelukast Sodium (Singulair) 10 mg PO HS [facility] Stop: 06/19/19 20:59 Last Admin: 05/20/19 20:48 Dose: 10 mg Documented by: [id number] Trazodone HCl (Desyrel) 50 - 100 mg PO HS PRN PRN Reason: sleep Stop: 06/19/19 19:09 Last Admin: 05/20/19 22:29 Dose: 50 mg Documented by: [id number] Discontinued Medications Aspirin (Aspirin) 324 mg PO NOW STA Stop: 05/20/19 16:09 Last Admin: 05/20/19 16:27 Dose: 324 mg Documented by: [id number] Heparin Sodium (Porcine) 5,000 (units/ Syringe) 5 mls @ 10 mls/min IV NOW ONE Stop: 05/21/19 02:16 Last Admin: 05/21/19 03:00 Dose: 10 mls/min Documented by: [id number] Cosigned by: [id number] Nitroglycerin (Nitrostat) 0.4 mg SL NOW STA Stop: 05/20/19 16:55 Last Admin: 05/20/19 17:01 Dose: 0.4 mg Documented by: [id number] Medical Decision Making Differential Diagnosis Differential diagnosis: Etiologies such as infections, reactive airway disease, pneumonia, pneumothorax, COPD, CHF, cardiac ischemia, pulmonary embolism, musculoskeletal, gastrointestinal, as well as others were entertained. Medical Records Attestation: I reviewed the patient's medical records. Home Medications Current Medication List: was personally reviewed by me Laboratory Data Attestation: I reviewed the patient's lab results. Result diagrams: 05/20/19 14:35 05/20/19 14:35 Lab Results 05/20/19 05/20/19 05/20/19 Range/Units 14:35 14:35 14:53 WBC 8.14 (4.8-10.8) K/uL RBC 4.47 (4.2-5.4) M/uL Hgb 12.6 (12.0-16.0) g/dL Hct 37.6 (37-47) % MCV 84.1 (80-100) fL MCH 28.2 (25-34) pg MCHC 33.5 (32-36) g/dL RDW Std Deviation 39.5 (36.4-46.3) fL RDW Coeff of Vale 13.1 (11.5-14.5) % Plt Count 234 (130-400) K/uL MPV 8.8 (7.4-10.4) fL Immature Gran % (Auto) 1.2 % Neut % (Auto) 63.5 % Lymph % (Auto) 25.1 % Kaufman % (Auto) 6.9 % Eos % (Auto) 3.2 % Baso % (Auto) 0.1 % Immature Gran # (Auto) 0.10 H (0.00-0.02) K/uL Neut # (Auto) 5.17 (1.4-6.5) K/uL Lymph # (Auto) 2.04 (1.2-3.4) K/uL Kaufman # (Auto) 0.56 (0.11-0.59) K/uL Eos # (Auto) 0.26 (0-0.5) K/uL Baso # (Auto) 0.01 (0-0.2) K/uL PT 9.7 (9.0-12.0) Seconds INR 0.9 (0.9-1.1) Sodium 142 (136-145) mmol/L Potassium 3.3 L (3.5-5.1) mmol/L Chloride 106 (98-107) mmol/L Carbon Dioxide 29 (21-32) mmol/L Anion Gap 7.0 (3-11) BUN 18 (7-18) mg/dl Creatinine 1.06 (0.6-1.2) mg/dl Est Cr Clr Drug Dosing 64.6 ml/min Est GFR ( Amer) 68.5 Est GFR (Non-Af Amer) 59.1 BUN/Creatinine Ratio 17.3 (10-20) Glucose 96 (70-99) mg/dl Calcium 8.2 L (8.5-10.1) mg/dl Phosphorus 3.4 (2.5-4.9) mg/dl Magnesium 1.9 (1.8-2.4) mg/dl Total Bilirubin 0.2 (0.2-1) mg/dl AST 8 L (15-37) U/L ALT 17 (12-78) U/L Alkaline Phosphatase 86 (45-117) U/L Troponin I 0.192 H* (0-0.045) ng/ml NT-Pro-B Natriuret Pep 308 (0-900) pg/ml Total Protein 6.2 L (6.4-8.2) gm/dl Albumin 3.2 L (3.4-5.0) gm/dl Globulin 3.0 (2.5-4.0) gm/dl Albumin/Globulin Ratio 1.1 (0.9-2) Lipase 189 (73-393) U/L TSH 1.990 (0.300-4.500) uIu/ml Imaging Data Radiologist's Impression: Radiology results as stated below per my review and the radiologist's interpretation: XR chest 1V portable HISTORY: Atypical Chest Pain COMPARISON: Chest 05/15/2019. FINDINGS: No pneumothorax. No pleural effusions. A small right azygous node lobe is again noted. The heart is normal in size. No evidence for pulmonary edema. Near-complete resolution of the left basilar atelectasis. No new focal lung consolidations to suggest pneumonia. IMPRESSION: No acute process. Electronically signed by: Satish Turner M.D. 05/20/2019 3:59 PM ECG Data Attestation: I personally reviewed and interpreted this ECG as follows: Indication: SOB/dyspnea Rate (beats per minute): 91 Rhythm: normal sinus Findings: + other (normal axis); no acute ischemic change Comparison ECG Date: from (05/15/19) Change: no significant change Blood Pressure Blood Pressure Findings: Normal blood pressure Blood Pressure Disposition: did not require urgent referral MDM Narrative The patient is a pleasant 54 y/o woman with a pmhx of depression, anxiety, panic attacks, GERD, Asthma who presents to the emergency department with persistent SOB over the past week per HPI. Patient was seen in the ED on 05/15 for SOB and leg swelling after driving to and from [place]. Patient has unremarkable evaluation at that time inlcuding negative Troponin and CT chest negative for PE or PNA although did have small left pleural effusion. BLE duplexes were negative for PE. Patient felt improvement after duoneb and so was treated for allergic bronchitis with steroids. On arrival the patient is in NAD, AFVSS. EKG without overt acute ischemia and similar to prior. WBC, H/H, platelets wnl. Chemistry without acidosis. LFTs and electrolytes unremarkable. Initial troponin 0.192. Case was d/w Dr. Yap, [place] water pump operator on-call. Recommends to continue to monitor and trend troponin. Hold on heparin for now. If troponin is uptrending then consider heparin. Case d/w Dr. Santoyo, [facility] hospitalist, who will evaluate the patient for admission. Patient updated and agreeable with plan. Patient denies any CP at this time but still with SOB, will trial NTG. Impression & Plan Shortness of breath, Elevated troponin Discharge Plan Visit Data *Final* Discharge Date/Time: 05/20/19 18:40 Chief Complaint: Shortness of Breath/Dyspnea Stated Complaint: TROUBLE BREATHING ED Provider: Morales Devine Discharge Problem: Shortness of breath, Elevated troponin Patient Disposition: Admitted As Inpatient Discharge Instructions Interventions: ED Discharge Assessment Last Done: 05/20/19 18:40 The scribe's documentation has been prepared under my direction and personally reviewed by me in its entirety. I confirm that the note above accurately reflects all work, treatment, procedures, and medical decision making performed by me.
--- NOTE | 2019-05-21 06:12 | CT Scan Report ---
CT head/brain wo con CLINICAL HISTORY: 54 years-old Female presenting with chest pain, eval head prior to initiating hepar in drip. TECHNIQUE: Multidetector CT imaging of the head was performed without the use of intravenous contrast . IV contrast: None. One or more dose lowering techniques were used consistent with the principles of ALARA (as low as reasonably achievable), including automatic exposure control, mA or kV adjustment t o individual patient size, and/or use of iterative reconstruction. COMPARISON: 02/27/2019. CT DOSE (mGy.cm): The estimated cumulative dose is 537.48 mGy.cm. FINDINGS: Blindstitch Hemmer topogram: Unremarkable. Ventricles and sulci normal in size. No hemorrhage. Brain parenchyma normal in appearance with preser cheyanne holbrook-white differentiation. No acute territorial infarct. No mass effect or midline shift. No ext ra-axial fluid collection. Paranasal sinuses and mastoid air cells clear. Calvarium intact. IMPRESSION: 1. No acute intracranial abnormality. Electronically signed by: Jero Ponce M.D. 05/21/2019 6:11 AM
[2019-05-21 07:15] LABS: Estimated Average Glucose 108 mg/dl; Hemoglobin A1C 5.4 % (4.5-5.6)
[2019-05-21] MEDS ORDERED: PERFLUTREN LIPID MICROSPHERE (DEFINITY) IV ONE (08:22)
[2019-05-21] MEDS ORDERED: ESCITALOPRAM OXALATE 10 MG TAB PO SCH (09:00)
[2019-05-21] MEDS: ASPIRIN 81 MG ECTAB PO SCH (09:05)
[2019-05-21] MEDS: FLUTICASONE HFA 110MCG INHALER INH SCH ×2 (09:06→20:32)
[2019-05-21] MEDS: PANTOprazole 40 MG TAB PO SCH (09:06)
[2019-05-21] MEDS: ACETAMINOPHEN 325 MG TAB PO PRN ×2 (09:24→20:36)
[2019-05-21 09:56] LABS: Partial Thromboplastin Ratio 1.9
[2019-05-21] MEDS: TRAMADOL HCL 50 MG TABLET PO PRN (11:06)
--- NOTE | 2019-05-21 14:14 | Cardiology Consultation ---
Date of Consultation May 21, 2019 Assessment & Plan (1) Chest pain syndrome: The patient's description of chest discomfort is atypical for classic angina pectoris. However, she does demonstrated mildly elevated troponin. She does demonstrate borderline LVH on her echocardiogram and was significantly hypertensive at time of presentation. Her elevated troponin could simply be a supply demand mismatch, however, we should rule out coronary ischemia. We will likely proceed with a dobutamine stress test tomorrow morning. Consider cardiac catheterization if her troponin elevates significantly. (2) Shortness of breath: Suspect this is related to an asthmatic exacerbation, however, an anginal equivalent needs to be excluded. Further testing as described above. (3) Elevated troponin: Mildly elevated at time of presentation. Plan as outlined above. (4) Hypercholesterolemia: Realizing her strong family history for coronary disease, it may be reasonable to start a statin. History of Present Illness Attending Physician: Bill Bazan DO History of Present Illness Mrs. Santos is a 54-year-old female admitted yesterday with complaints of exertional dyspnea and mildly elevated troponin. This consultation was ordered to assist in her management. The patient was in her usual state of health until May 15 when she presented to the emergency room complaining shortness of breath, substernal chest pressure, nausea, and some lower extremity edema. It was felt that her dyspnea and chest discomfort was related to an asthmatic exacerbation. She was placed on a tapering dose of prednisone and discharged home. Her exertional dyspnea has continued since that time. She explains that sometimes, it is difficult for her to walk down the hallway without becoming significantly dyspneic. She also notices a constant substernal chest pressure which only resolves if she lies supine and keeps completely still. She feels that her discomfort occasionally increases with physical activity. She has never experienced syncope, presyncope, PND, orthopnea, palpitations, or claudication. The patient has been under a great deal of emotional stress since September. She has lost 10 friends and family members. She becomes tearful during our interview. Her is at the bedside attempts to console her by holding her hand. The patient has never known of a cardiac event. She has never had a cardiac catheterization or stress test. Currently, patient is resting comfortably in bed without complaints. Past medical and surgical history 1. Hypercholesterolemia 2. Asthma 3. GERD 4. Abnormal uterine bleeding. 5. Anxiety 6. PTSD 7. Chronic low back pain 8. Tonsillectomy 9. 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 Mother at 86 from CHF A brother at 42 from an [place] Review of systems A 10 point review of systems was negative except for that described above. Allergies Allergy/AdvReac Type Severity Reaction Status Date / Time No Known Allergies Allergy Verified 05/20/19 15:13 Home Medications Home Medications Medication Instructions Recorded Confirmed Type fluticasone propionate 110 1 puffs INH BID #12 gm 02/26/19 05/20/19 Rx mcg/actuation HFA aerosol inhaler naproxen 500 mg tablet 500 mg PO Q12H PRN #60 tab 02/26/19 05/20/19 Rx meloxicam 15 mg tablet 15 mg PO QAM 04/04/19 05/20/19 History montelukast 10 mg PO HS 05/15/19 05/20/19 History omeprazole 20 mg PO QAM 05/15/19 05/20/19 History trazodone 50 - 100 mg PO HS PRN 05/15/19 05/20/19 History albuterol sulfate HFA 90 2 puffs INH Q4H PRN #6.7 gm 05/16/19 05/20/19 Rx mcg/actuation aerosol inhaler escitalopram 10 mg tablet 10 mg PO DAILY #90 tab 05/17/19 05/20/19 Rx clonazepam [Klonopin] 0.5 mg PO BID PRN 05/20/19 05/20/19 History prednisone 60 mg PO .DAILY UD 05/20/19 05/20/19 History tramadol 75 mg PO BID PRN 05/20/19 05/20/19 History Patient History Medical History Abnormal uterine bleeding (AUB) (Acute) Cluster B personality disorder (Chronic) Panic attacks (Chronic) Low back pain (Chronic) GERD (gastroesophageal reflux disease) (Chronic) Asthma (Chronic) Allergic rhinitis (Chronic) Anxiety (Chronic) PTSD (post-traumatic stress disorder) (Chronic) Surgical History History of bunionectomy Hx of tonsillectomy S/P appendectomy Family History Father Myocardial infarction Alcohol abuse Family/Other Alcohol abuse Cancer Mother Diabetes Cardiac disorder Brother Drug abuse Myocardial infarction Unknown Hypertension Other No significant family history Social History Preferred Language: Malay Communication Ability: Effective Neuropsychologist Required: No Beliefs That Will Affect Care: None Current Living Situation: Spouse and Family Other Information That Helps Us Care for You: No Feels Safe at Home: Yes Safety Concerns: Feels Safe At This Time Smoking Status: Former smoker Hx Alcohol Use: Yes Alcohol type: wine Hx Substance Use: No Physical Exam Physical Exam: In general this is a well-developed well-nourished white female in no acute distress. HEENT exam is negative. Neck is supple with full carotid upstrokes. There are no carotid bruits. Jugular venous pressure is flat at 90. There is no thyromegaly. Cardiovascular exam reveals a regular rhythm with a normal S1 and S2. No S3, S4, or murmurs are noted. Lungs are clear without rales, rhonchi, or wheezes. Abdomen is soft and nontender without bruits. Extremities reveal intact radial artery and posterior tibial pulses bilaterally. There is no peripheral edema. Results & Data Vital Signs (Past 12 Hours) Vital Signs Temp Pulse Pulse Pulse Resp BP Pulse Ox 05/21/19 11:20 36.5 C 89 18 116/74 98 05/21/19 09:15 94 H 05/21/19 07:57 36.4 C L 81 18 133/80 97 05/21/19 03:37 36.4 C L 81 17 141/89 H 96 Laboratory Results CBC notes a hemoglobin of 12.6, hematocrit 37.6, white count 8.14, and platelet count of 216430. Electrolytes noted a sodium of 142, potassium 3.3, chloride 106, bicarb 29, BUN 18, creatinine 1.06, and a glucose of 96. Initial troponin was 0.192 with follow-up as is 0.237, 0.299, 0.362, and 0.363. Triglyceride level was 432 with a total cholesterol of 246, and an HDL low at 39. LDL could not be calculated. Diagnostic Findings EKG notes normal sinus rhythm without abnormalities. Chest x-ray shows no acute disease. PG Care Time/CCT Total # of Minutes Spent Total Time Spent with Patient: Total time spent is greater than 50% in coordination of care (as documented) at patient's floor/unit and/or counseling patient:
[2019-05-21] MEDS ORDERED: ONDANSETRON INJ 2 MG/ML 2 ML VIAL IV PRN (14:42)
--- NOTE | 2019-05-21 15:04 | Hospitalist Progress Note ---
Date of Service May 21, 2019 Assessment & Plan (1) Shortness of breath: - She was evaluated on 05/15 for SOB/nausea/leg swelling after a long car trip but negative for DVT/PE and troponin normal - treated for possible allergic element due to underlying asthma and cat exposure -- She completed a steroid taper with no improvement of symptoms - states she has chest pressure/tightness that feels similar to when she had pneumonia in the past - CTA from 05/15 and CXR without signs of pneumonia - Continue Albuterol PRN; Singulair 10 mg HS (2) Elevated troponin: - Initial troponin of 0.192 and increased to 0.363 and trending down - Heparin gtt initiated at this time; anticipating dobutamine stress test tomorrow with possibility of cardiac catheterization - presentation is rather atypical chest pain - Continue SL nitroglycerin PRN; if ongoing symptoms can convert to nitropaste - Echo - EF 60%; no wall motion abnormalities; no significant valvular issues; Triglycerides 432 and total cholesterol 246 and discussed dietary/exercise changes but may benefit from statin therapy pending evaluation/and given family history - Consult cardiology - discussed with Dr. Yap - appreciate assistance and further testing (3) Asthma: - No current exacerbation - Continue inhalers as above (4) Anxiety: - STABLE - however reports a lot of stressors/deaths however she feels that she is in a better state then she has been and better managing her chronic issues with anxiety and PTSD - Continue Klonopin PRN; Lexapro 10 mg daily; and Trazadone PRN for sleep Subjective Reports she is doing well today. Continues to have chest tightness that is ongoing and rather atypical. Troponins continued to increase but peaked at 0.363 and is now trending down. Has been sinus on the monitor. No new symptoms. Verbalizes no new issues. Review of Systems Constitutional: no fever and no chills Respiratory: no cough, no dyspnea and no dyspnea on exertion Cardiovascular: + edema (intermittent b/l legs - improved today); no chest pain (but reports pressure/tightness - rather ongoing), no radiating jaw, neck or arm pain and no lightheadedness Gastrointestinal: no abdominal pain, no nausea, no vomiting, no constipation and no diarrhea/loose stools Genitourinary: no dysuria Physical Exam Constitutional: well developed and well nourished; no acute distress Eyes: + anicteric sclerae ENMT: Ears: no hearing impairment Neck: trachea midline Respiratory: normal respiratory effort, lungs clear to auscultation Cardiovascular: RRR, no murmur, no edema Gastrointestinal (Abdomen): Inspection/Auscultation: normal bowel sounds Percussion/Palpation: abdomen soft; abdomen nontender Musculoskeletal: no cyanosis or clubbing, extremities motor strength 5/5 Head/Neck/Chest: normocephalic and head atraumatic Skin: no rashes, warm and dry Neurologic: moves all extremities Psychiatric: A+Ox3, euthymic affect Results & Data Vital Signs (Past 12 Hours) Vital Signs Temp Pulse Pulse Pulse Resp BP Pulse Ox 05/21/19 11:20 36.5 C 89 18 116/74 98 05/21/19 09:15 94 H 05/21/19 07:57 36.4 C L 81 18 133/80 97 05/21/19 03:37 36.4 C L 81 17 141/89 H 96 PG Care Time/CCT Total # of Minutes Spent Total Time Spent with Patient: Total time spent is greater than 50% in coordination of care (as documented) at patient's floor/unit and/or counseling patient:
[2019-05-21] MEDS: ESCITALOPRAM OXALATE 10 MG TAB PO SCH (20:33)
[2019-05-21] MEDS: MONTELUKAST SODIUM 10 MG TABLET PO SCH (20:33)
[2019-05-21] MEDS: TRAZODONE HCL 50 MG TAB PO PRN (22:05)
[2019-05-22 06:57] LABS: Partial Thromboplastin Ratio 2.2
[2019-05-22 07:08] LABS: Partial Thromboplastin Time 60.7 Seconds (21.0-31.0)
[2019-05-22] MEDS: ASPIRIN 81 MG ECTAB PO SCH (07:55)
[2019-05-22] MEDS: PANTOprazole 40 MG TAB PO SCH (07:55)
[2019-05-22] MEDS: FLUTICASONE HFA 110MCG INHALER INH SCH (07:55)
--- NOTE | 2019-05-22 13:08 | Cardiology Progress Note ---
Date of Service May 22, 2019 Assessment & Plan (1) Chest pain syndrome: The patient's description of chest discomfort is atypical for classic angina pectoris. Fortunately, her mildly elevated troponin is now trending downward. Her elevated troponin could simply be a supply demand mismatch, however, we should rule out coronary ischemia. Will proceed with a stress echocardiogram this morning. (2) Shortness of breath: Suspect this is related to an asthmatic exacerbation, however, an anginal equivalent needs to be excluded. Further testing as described above. (3) Elevated troponin: Mildly elevated at time of presentation. Plan as outlined above. (4) Hypercholesterolemia: Realizing her strong family history for coronary disease, it may be reasonable to start a statin. Subjective The patient is resting comfortably in bed without complaints of chest pain or dyspnea. Her troponin I levels are decreasing. We have discussed proceeding with a stress test this morning. Physical Exam Physical Exam: In general this is a well-developed well-nourished white female in no acute distress. HEENT exam is negative. Neck is supple with full carotid upstrokes. There are no carotid bruits. Jugular venous pressure is flat at 90. There is no thyromegaly. Cardiovascular exam reveals a regular rhythm with a normal S1 and S2. No S3, S4, or murmurs are noted. Lungs are clear without rales, rhonchi, or wheezes. Abdomen is soft and nontender without bruits. Extremities reveal intact radial artery and posterior tibial pulses bilaterally. There is no peripheral edema. Results & Data Vital Signs (Past 12 Hours) Vital Signs Temp Pulse Pulse Resp BP Pulse Ox 05/22/19 12:07 84 05/22/19 11:44 36.4 C L 83 18 104/66 97 05/22/19 08:03 36.5 C 90 18 114/70 96 05/22/19 03:13 36.4 C L 86 17 122/75 95 Diagnostic Findings phototypesetting equipment monitor is benign. PG Care Time/CCT Total # of Minutes Spent Total Time Spent with Patient: Total time spent is greater than 50% in coordination of care (as documented) at patient's floor/unit and/or counseling patient:
--- NOTE | 2019-05-22 14:26 | XRay Report ---
SINGLE VIEW CHEST CLINICAL HISTORY: Dyspnea. Chest tightness. FINDINGS: An AP, portable, upright chest radiograph is compared to study dated 05/20/2019 and correlate d with chest CT dated 05/15/2019. The examination is degraded by portable technique and patient rotati on. The cardiomediastinal silhouette is unremarkable. Trace pleural effusions persist with bibasilar atelectasis. The lungs are otherwise clear. No pneumothorax is seen. The bony thorax is grossly inta ct. IMPRESSION: Trace pleural effusions. Electronically signed by: Ehsan Rivera M.D. 05/22/2019 2:24 PM
[2019-05-22] MEDS: TRAMADOL HCL 50 MG TABLET PO PRN (16:06)
--- NOTE | 2019-05-22 19:14 | Discharge Summary ---
Date of Service May 22, 2019 Admission HPI Per Admitting Provider Ms. Santos is a 54 y/o female with PMHx of Anxiety and PTSD who presents to the ED c/o ongoing chest tightness and SOB. Patient was evaluated in ED on 05/15 for SOB, nausea, and lower extremity edema after traveling by car to [place] and back. Workup was negative for DVT/PE and troponin was unremarkable. She was prescribed Prednisone for possibly allergic component given her underlying asthma and cat exposure which she reports an allergy to. However, symptoms have not improved with inhalers and prednisone. She states she was out to eat with her and continued to have chest pressure and tightness. She initially related this to her anxiety and panic attacks as she has been dealing with multiple family/friend stressors/deaths. Due to ongoing symptoms she presented to the ED this evening. Troponin was noted to be 0.192 and EKG without ischemic changes. She was given a loading dose of aspirin and SL NGT and did report some relief of her chest pressure. She denies any known personal cardiac issues and denies high cholesterol. She does report a father requiring CABG in early 40s and a brother who in his 40s from a heart attack. She also reports a nephew who in his 30s and she believes this was cardiac as well. Principal Diagnosis Elevated Troponin Discharge Exam Constitutional WD/WN, vitals as above Eyes + anicteric sclerae ENMT Ears: no hearing impairment Neck trachea midline Respiratory normal respiratory effort, lungs clear to auscultation Cardiovascular RRR, no murmur, no edema Gastrointestinal (Abdomen) Inspection/Auscultation: normal bowel sounds Percussion/Palpation: abdomen soft; abdomen nontender Skin no rashes, warm and dry Neurologic moves all extremities Psychiatric A+Ox3, euthymic affect Discharge Data Allergies Allergy/AdvReac Type Severity Reaction Status Date / Time No Known Allergies Allergy Verified 05/25/19 11:01 Consultations 05/20/19 16:08 ED Decision to Admit Stat 05/20/19 19:10 Consult Cardiology Routine Consult Case Management - Discharge Planning Routine Ordered Studies 05/21/19 00:14 CT head/brain wo con Urgent Hospital Course (1) Shortness of breath: - She was evaluated on 05/15 for SOB/nausea/leg swelling after a long car trip but negative for DVT/PE and troponin normal - treated for possible allergic element due to underlying asthma and cat exposure -- She completed a short steroid course with no improvement of symptoms - states she has chest pressure/tightness that feels similar to when she had pneumonia in the past - CTA from 05/15 and CXR without signs of pneumonia - It appears she has noticed some difficulty going the full length of her walks due to shortness of breath but has noticed its been a little more obvious over the past 1-2 weeks - it is possible that she may have more advanced asthma as her last PFTs were from approx. 10 years ago and may benefit form a long-acting bronchodilator. She states she was on an inhaler previously but it made her heart race and she is not sure which one. On chart review I could not find information on this so I advised her to discuss with PCP about a possible reg imen change vs repeat PFTs. Did get a outside solar sales consultant appointment arranged as well - She also states she only takes half of her Singulair and states she will take the full dose. She does use Flovent at home but normally does not need her rescue inhaler. Did instruct to continue her rescue inhaler scheduled for 3-4 days then use as needed. Also to keep this on her when she goes on walks and rest and take a dose to see if this helps her symptoms - She is moving good air on examination so it is not certain if this is the underlying issue; she also does endorse ongoing stress which may be giving her some physiological issues however she states she feels like she is doing better mentally then she has in the past but has had multiple loved ones pass away and does report some flairing issues with her PTSD. - Possibly reflux may be a contributor and could be further explored as a contributor to her SOB? (2) Elevated troponin: - Initial troponin of 0.192 and increased to 0.363 and trending down even though her chest pressure remained - she did endorse reduction of this pressure however it would still intermittently occur even with troponins trending down; no ischemic changes on EKG and hospital monitor reveals NSR - Discussion with cardiology - given that the troponin is only mildly elevated the question of maybe her increased BP (170/100) or the found LVH maybe contributing to numbers? - Heparin gtt initiated and ultimately D/Cd - Resting echo reveals EF 60% with no wall motional abnormalities, no significant valvular issues, there is mild LVH; Exercise stress test was negative with reaching 90% exertion without ischemic changes, arrhythmias, and normal BP response - test was aborted due to SOB - She is noted to have triglycerides 432 and total cholesterol of 246 - did advise on dietary and other lifestyle changes; given her significant family history of coronary disease at a young age and her presentation, Atorvastatin 20 mg daily was initiated and can trend response - Advised to continue ASA 81 mg daily but to be mindful of Mobic and Naproxen use concurrently - Cardiology following - plans to F/U in 2-4 weeks - at this time no plans for cardiac catheterization but further assessment/intervention on F/U (3) Asthma: - Continue inhalers as above (4) Anxiety: - STABLE - however reports a lot of stressors/deaths however she feels that she is in a better state then she has been and better managing her chronic issues with anxiety and PTSD - Continue Klonopin PRN; Lexapro 10 mg daily; and Trazadone PRN for sleep Total Time Total Time Spent Total Time Spent (In Minutes): Greater than 30 minutes Discharge Plan Discharge Items Patient Disposition: Home - Self-Care Reason For Visit: ELEVATED TROPONIN Discharge Diagnosis: Elevated Troponin Discharge Goals: Decrease discomfort, Diagnostic testing and Improve disease control Activity: Resume your previous activity Non-emergency contact: Primary Care Provider Call non-emergency contact if: you have any medication questions, your symptoms worsen and you have a fever Follow-up/Referrals: Alex Conner PA-C [Physician Emt I/85] - 05/25/19 10:00 am (Please, follow up at [facility] with Joe Conner PA-C on TuesdayMay 25 at 10:00 am. *The office is located in [address] of [facility]. This is the big building next to this [facility]. If you have any questions, call the office at [phone].) Florencia Suarez MD [Primary Care Provider] - 05/30/19 3:00 pm (Please, follow up at Dr. Suarez's office with her learning and development assistant, Fany Valadez PA-C on TuesdayMay 30 at 3:00 pm. *If you need to change this appointment, call the office at [phone].) Diet: Heart Healthy Add Provider Instructions: Shortness of Breath: - It is possible this is related to a mild asthma exacerbation. It appears this may have been slowly worsening for you as you have noticed this on your walks. It is possible that your asthma has advanced and may need new pulmonary function testing to see how it is. We will help set up an appointment for you to see the [facility]. - Recommend to continue your albuterol (rescue inhaler) every 4 hours for the next 3 days then can change to just as needed. Keep your rescue inhaler on you when you go on walks so if you get shortness of breath you can use this. - Thankfully your Xray and CAT scan does not show blood clots or pneumonia. However if you develop a fever or a cough please talk with your doctor. - Recommend to try and change filters in the car or home. Consider washing curtains and other fabrics as this could be holding on to some allergens - Also it might be worth looking into your reflux as some people can get shortness of breath from reflux. Continue your Omeprazole as prescribed. If the pulmonary tests do not reveal findings then this may be the next thing to look into Elevated Troponin: - This is not certain why they bumped up as they did not go very high. It is possible that your elevated blood pressure on admission could have caused this extra stress on the heart. Thankfully these numbers are trending down to normal. Your heart looks good. The ultrasound and stress test does not show ischemic changes meaning lack of blood flow to the heart muscle. The pumping action of the heart is normal at 60% and the valves do not show dysfunction. You do have a mild left ventricular hypertrophy which is a thickening of the left side of the heart muscle which is rather common. The rasmussen to helping with this is to stay active, eat a balanced diet, keep blood pressure under control, and keep cholesterol under control. - Dr. Yap with the cardiology group will follow-up with you as well in the next 2-4 weeks - In the meantime, recommend to continue a daily baby aspirin of 81 mg daily. Just be mindful as this is a antiinflammatory medication like naproxen and Meloxicam. If you notice you are taking a lot of Naproxen you may need to get a different medication. Too much of these medications on a regular bases can increase stomach ulcers and bleeding. You can talk with your family doctor about this - You will also be started on Atorvastatin 20 mg daily. This is a cholesterol medication. If you notice your muscle pains are getting more frequent stop this medication and talk with your doctor as this could be a side effect. Most do tolerate this medication well though. But if you continue to stay active and eat a balanced diet it can reduce your cholesterol overtime. Therefore routine cholesterol checks are recommended - Your A1c or how your sugars run is 5.6 which means you do not have diabetes. It also means your average blood sugar is 108 which is great. This should be checked periodically to just make sure this is normal since you have family members with diabetes. Prescriptions: New aspirin [Ecotrin Low Strength] 81 mg Tablet,Delayed Release (Dr/Ec) 81 mg PO QAM 30 Days Qty: 30 RF: 0 atorvastatin 20 mg tablet 20 mg PO HS 30 Days Qty: 30 RF: 0 Continued escitalopram oxalate [Lexapro] 10 mg tablet 10 mg PO DAILY Qty: 90 RF: 3 meloxicam 15 mg tablet 15 mg PO QAM RF: 0 Flovent HFA 110 mcg/actuation HFA aerosol inhaler 1 puffs INH BID Qty: 12 RF: 1 naproxen 500 mg tablet 500 mg PO Q12H PRN (Reason: pain) Qty: 60 RF: 0 omeprazole 20 mg capsule,delayed release(DR/EC) 20 mg PO QAM RF: 0 montelukast 10 mg tablet 10 mg PO HS RF: 0 trazodone 50 mg tablet 50 - 100 mg PO HS PRN (Reason: sleep) RF: 0 clonazepam [Klonopin] 0.5 mg tablet 0.5 mg PO BID PRN (Reason: Anxiety) RF: 0 tramadol 50 mg tablet 75 mg PO BID PRN (Reason: pain) RF: 0 Discontinued albuterol sulfate [Proventil HFA] 90 mcg/actuation HFA aerosol inhaler 2 puffs INH Q4H PRN (Reason: shortness of breath or wheezing) Qty: 6.7 RF: 5 prednisone 20 mg tablet 60 mg PO .DAILY UD RF: 0 No Action prednisone 10 mg tablet See Rx Instructions PO DAILY Qty: 36 RF: 0 albuterol sulfate [Ventolin HFA] 90 mcg/actuation HFA aerosol inhaler 2 puffs INH QID PRN (Reason: shortness of breath or wheezing) Qty: 18 RF: 4 ranitidine HCl 300 mg capsule 300 mg PO DAILY Qty: 30 RF: 2 Stand-Alone Forms: My [facility] Discharge Orders: Discharge Order (Routine); Ordered 05/22/19 Ordered By: Amanda Rodgers Admission Data Admit Date/Time: 05/20/19 18:49 Attending Provider: Bill Bazan Admit Provider: Scooter Santoyo Primary Care Provider: Florencia Suarez Other Providers: Scooter Santoyo ; Rodger Yap Service: Telemetry Other Interventions: Discharge Summary Assessment (RN) Last Done: 05/22/19 16:46 Pending Studies at Discharge: No DC Date/Time DO NOT enter until pt leaves facility: 05/22/19 18:01 Supervising Physician Co-Signing Physician Notes Attending note: patient seen and examined with Amanda Rodgers PA-C. I agree with her discharge summary. I personally reviewed the labs and imaging findings. Patient seen after her exercise stress echo. The test was negative for ischemic changes at 90% max HR. She did not have any chest pain. Discussed that her heart appears to be stable. Have ruled out severe CAD. Discussed her dyspnea further, more likely due to her asthma. Amanda Rodgers provided her with some good recommendations. Certainly she would benefit from pulmonary referral as outpatient. - Elevated troponin: strong family h/o CAD and she has some risk factors, but resting echo normal and exercise stress echo with no signs of ischemia - Dyspnea, URIAS: likely due to asthma, no wheezing at rest on exam continue Albuterol, Singular, inhaled steroid recommend follow up with pulmonary, it has been a few years since her last PFT - Anxiety: question how much her anxiety has to do with symptoms 10 people in her family have in the past year so her mortality is in her mind which is normal reaction may be causing her to experience the dyspnea even stronger certainly since testing has been negative, it may support this theory
== END 2019-05-22 18:01 | disposition home or self-care (01) ==
LOC: 2S 14:01 → ED 14:01 → 2S 18:40 → SUATTDRO 18:49

== ENCOUNTER 2021-10-30 10:55 | Inpatient (IN) ==
[2021-10-30] MEDS ORDERED: SODIUM CHLORIDE 0.9% 500 ML IV STA (11:00)
--- NOTE | 2021-10-30 11:05 | Emergency Department Note ---
Impression & Plan Asthma, Anxiety, Tachycardia, UTI (urinary tract infection) ED Provider Note NAME: CARLOS DOTY AGE: 56 SEX: F : 1965 ARRIVES VIA: Ambulance INFORMANT: Patient, EMS ED PROVIDER(S): Rodger Alvares DO CHIEF COMPLAINT: Shortness of breath HPI: The patient is a 56-year-old female who presented to the emergency department for an evaluation of shortness of breath. The patient arrived via ambulance. The patient states that she has had symptoms for the last few weeks but they started to become worse over the last 24 hours. She states that she became very short of breath and thought she was having an asthma attack. She does have a history of asthma but also has a history of anxiety. When prehospital personnel arrived the patient was complaining of numbness in the upper extremities and appeared to be hyperventilating. Her respiratory rate was in the 60s but her oxygen saturation was acceptable. She was treated with Ativan and supplemental oxygen prior to arrival. Upon arrival the patient was feeling much better. She denies having any chest pain but does complain of some lower extremity pain. She denies having any abdominal pain or back pain. The prehospital personnel also state that she has had some significant anxiety issues recently. Her outpatient immigration case manager did come on to seen and tried to help calm the patient down. The patient states that she has been seen by her family doctor for the symptoms. She also complains of a fever that occurs almost daily. She states she has no fever at this time. She states that she is been compliant with all her usual outpatient medications. ROS: See above HPI for pertinent positives & negatives. A total of 10 systems reviewed and were otherwise negative. PAST MEDICAL HISTORY: See Below PAST SURGICAL HISTORY: See Below FAMILY HISTORY: See Below SOCIAL HISTORY: See Below HOME MEDICATIONS: See Below ALLERGIES: See Below VITALS: See Below PHYSICAL EXAMINATION: GENERAL: The patient is awake and alert. The patient is very anxious appearing but appears comfortable. EYES: The conjunctivae are clear. The pupils are round and reactive. EARS, NOSE, MOUTH AND THROAT: The nose is without any evidence of any deformity. Mucous membranes are moist. Tongue is midline. NECK: The neck is nontender and supple. RESPIRATORY: Normal respiratory effort is noted there is no evidence of wheezing rhonchi or rales CARDIOVASCULAR: Tachycardic rate with regular rhythm was noted. No definite murmur was noted. GASTROINTESTINAL: The abdomen is soft. Abdomen is nontender. MUSCULOSKELETAL/EXTREMITIES: There is no evidence of gross deformity full range of motion is noted in the hips and shoulders. SKIN: There is no obvious evidence of any rash. There are no petechiae, pallor or cyanosis noted. NEUROLOGIC: Patient is awake alert and oriented x3 MEDICAL DECISION MAKING: The patient is a 56-year-old female who presented to the emergency department for an evaluation of difficulty breathing. The patient was having an anxiety attack. She was treated with Ativan prior to arrival. She was treated with IV fluids and medications for her asthma in the emergency department. She was reevaluated multiple times when she was also treated with IV antibiotics for presumed urinary tract infection noted on urinalysis. I discussed the patient's laboratory and radiographic studies with her. She was significantly improved on reevaluation. Prior to being discharged the patient told nursing that she was having thoughts of hurting herself. She requested to be evaluated by the [facility] immigration case manager. Further laboratory studies were obtained to do a medical clearance on the patient. She was medically cleared in the emergency department and reevaluated again. She was evaluated by the [facility] immigration case manager. The patient was signed out to Dr. Arnold at change of shift. Please see his note for continuation of care and further disposition. Triage Nursing notes reviewed. Prior medical records reviewed Vital Signs: reviewed and remarkable for no significant abnormalities Differential diagnosis: Reactive airway disease, pneumonia, pneumothorax, COPD, CHF, infections, card iac ischemia, pulmonary embolism, musculoskeletal, gastrointestinal, as well as other pathologies. ER treatment provided: See below Diagnostics interpreted by me: ECG: EKG was obtained in the emergency department. My interpretation is sinus tachycardia 129 bpm. There was no ectopy. There is no acute ST segment abnormalities noted. This was compared to a tracing from December 182020. There was an increase in the rate otherwise no changes. Cardiac Monitoring: An order was placed for continuous cardiac monitoring. The monitor shows a rate of 82 bpm with sinus rhythm. Laboratory studies: As stated above and show below. Imaging studies: See below Consultation(s): none Past Med/Surg History Medical History Allergic rhinitis Anxiety Asthma well controlled per pt Cluster B personality disorder GERD (gastroesophageal reflux disease) Hypercholesterolemia Impaired fasting glucose Low back pain Osteoarthritis PTSD (post-traumatic stress disorder) Right lumbar radiculopathy Serotonin syndrome (10/2020) Sertraline + Tramadol Surgical History History of bunionectomy bilt pinky toes History of colonoscopy with polypectomy History of left cataract surgery History of right cataract surgery Hx of tonsillectomy S/P appendectomy Family History Father Alcohol abuse Myocardial infarction Family/Other Alcohol abuse Cancer Mother Diabetes Cardiac disorder Brother Drug abuse Myocardial infarction Unknown Hypertension Other No family history of adverse response to anesthesia No significant family history Denies family history of Ovarian cancer Prostate cancer Breast cancer Colorectal cancer Social History Smoking Status: Never smoker Second Hand Exposure: No; Hx Alcohol Use: Yes Alcohol type: wine Hx Substance Use: No Preferred Language: Polish Communication Ability: Effective Visual Impairment: No Limitations Hearing Ability: Normal Munitions Handler Required: No Beliefs That Will Affect Care: None marital status: Current Living Situation: Alone Feels Safe at Home: Yes Assistive Devices: Glasses Allergies Allergies Allergy/AdvReac Type Severity Reaction Status Date / Time fluticasone furoate AdvReac Intermediate heart Verified 10/30/21 11:54 [From Breo Ellipta] racing vilanterol AdvReac Intermediate heart Verified 10/30/21 11:54 [From Breo Ellipta] racing ibuprofen AdvReac Mild "makes me Verified 10/30/21 11:54 depressed" Home Meds Home Medications Medication Instructions Recorded Confirmed Doterra 1 tab PO BID 03/21/20 10/30/21 prazosin 1 mg capsule 1 mg PO QAM 04/15/21 10/30/21 albuterol sulfate 2.5 mg INHALATION Q6H PRN 04/28/21 10/30/21 lamotrigine 100 mg tablet 100 mg PO QAM 04/28/21 10/30/21 prazosin 1 mg capsule 2 mg PO HS 04/28/21 10/30/21 Active Heart 1 tab PO BID 10/15/21 10/30/21 Biocomplete 1 tab PO BID 10/15/21 10/30/21 cholecalciferol (vitamin D3) 125 125 mcg PO QAM 10/15/21 10/30/21 mcg (5,000 unit) capsule furosemide 20 mg tablet (Lasix) 20 mg PO QAM 10/15/21 10/30/21 naproxen 500 mg tablet 500 mg PO BID 10/15/21 10/30/21 nystatin 100,000 unit/gram topical 1 applic TOPICAL BID PRN 10/15/21 10/30/21 powder potassium chloride 20 mEq 20 meq PO QAM 10/15/21 10/30/21 tablet,extended release tiotropium bromide 2.5 1 puff INH BID 10/15/21 10/30/21 mcg/actuation mist for inhalation (Spiriva Respimat) venlafaxine 75 mg tablet,extended 75 mg PO QAM 10/15/21 10/30/21 release 24 hr Previous Rx's Medication Instructions Recorded nebulizers #1 ea 12/25/20 aspirin 81 mg tablet,delayed 81 mg PO QAM #90 tab 04/30/21 release (Adult Low Dose Aspirin) hydroxyzine HCl 10 mg tablet 10 mg PO HS #90 tab 04/30/21 montelukast 10 mg tablet 10 mg PO QPM #90 tab 04/30/21 pantoprazole 40 mg tablet,delayed 40 mg PO QAM #90 tab 05/26/21 release gabapentin 100 mg capsule 100 mg PO TID #90 cap 07/21/21 albuterol sulfate 90 mcg/actuation 1 inh INH Q6H PRN #3 inhaler 09/22/21 aerosol inhaler (Ventolin HFA) mometasone-formoterol HFA 100 2 puff INHALATION BID #3 inhaler 10/12/21 mcg-5 mcg/actuation aerosol inhaler (Dulera) famotidine 20 mg tablet (Pepcid) 20 mg PO BID #180 tab 10/27/21 rosuvastatin 20 mg tablet 20 mg PO HS #90 tab 10/27/21 cyclobenzaprine 10 mg tablet 10 mg PO HS #90 tab 10/28/21 prednisone 20 mg tablet 20 mg PO BID 5 Days #10 tab 10/30/21 Results & Data (ED) Vital Signs Vital Signs - 24 hr 10/30/21 11:01 10/30/21 12:13 10/30/21 13:00 Temperature 38.2 C H Temperature Source Oral Pulse Rate 131 H 123 H Pulse Rate [Carotid] 125 H Pulse Rhythm Regular Pulse Rhythm [Carotid] Pulse Strength [Carotid] Respiratory Rate 20 22 Respiratory Effort / Characteristics Non-Labored Spontaneous Non-Labored Spontaneous Respiratory Depth Normal Respiratory Pattern Regular Blood Pressure 126/74 Blood Pressure [Left Arm] 130/85 Blood Pressure Mean 91 Blood Pressure Mean [Left Arm] 100 Pulse Oximetry 93 97 96 Oxygen Delivery Method Room Air Room Air Room Air Oxygen Flow Rate 0 Sepsis Recent Fever Within 48 Hours Yes Sepsis New/Unexplained Change in Mental Status No Sepsis Action Taken by Nursing Physician Notified 10/30/21 16:00 10/30/21 16:58 10/30/21 17:32 Temperature 36.8 C 37.2 C Temperature Source Oral Oral Pulse Rate Pulse Rate [Carotid] 116 H 82 Pulse Rhythm Pulse Rhythm [Carotid] Regular Regular Pulse Strength [Carotid] Normal Normal Respiratory Rate 20 20 Respiratory Effort / Characteristics Non-Labored Spontaneous Non-Labored Respiratory Depth Normal Normal Respiratory Pattern Blood Pressure Blood Pressure [Left Arm] 121/76 138/67 Blood Pressure Mean Blood Pressure Mean [Left Arm] 91 90 Pulse Oximetry 97 98 Oxygen Delivery Method Room Air Room Air Oxygen Flow Rate Sepsis Recent Fever Within 48 Hours Sepsis New/Unexplained Change in Mental Status Sepsis Action Taken by Usp Medications Current Medication List: was personally reviewed by me Laboratory Data Attestation: I reviewed the patient's lab results. Result diagrams: 10/30/21 12:22 10/30/21 12:22 Lab Results 10/30/21 10/30/21 10/30/21 Range/Units 12:22 12:22 12:22 WBC 7.01 (4.8-10.8) K/uL RBC 4.77 (4.2-5.4) M/uL Hgb 13.2 (12.0-16.0) g/dL Hct 40.2 (37-47) % MCV 84.3 (80-100) fL MCH 27.7 (25-34) pg MCHC 32.8 (32-36) g/dL RDW Std Deviation 42.4 (36.4-46.3) fL RDW Coeff of Vale 13.7 (11.5-14.5) % Plt Count 277 (130-400) K/uL MPV 8.6 (7.4-10.4) fL Immature Gran % (Auto) 0.1 % Neut % (Auto) 84.8 % Lymph % (Auto) 9.3 % [place] % (Auto) 5.0 % Eos % (Auto) 0.7 % Baso % (Auto) 0.1 % Neut # (Auto) 5.94 (1.4-6.5) K/uL Lymph # (Auto) 0.65 L (1.2-3.4) K/uL [place] # (Auto) 0.35 (0.11-0.59) K/uL Eos # (Auto) 0.05 (0-0.5) K/uL Baso # (Auto) 0.01 (0-0.2) K/uL Immature Gran # (Auto) 0.01 (0.00-0.02) K/uL PT 9.6 (9.0-12.0) Seconds INR 0.9 (0.9-1.1) APTT 26.5 (21.0-31.0) Seconds PTT Ratio 1.0 D-Dimer 880 H* (0-500) ug/L FEU VBG pH (7.36-7.41) VBG pCO2 (38-50) mmHg VBG pO2 mmHg VBG HCO3 mmol/L VBG O2 Saturation % VBG Base Excess mEq/L Barometric Pressure mm/Hg Sodium 139 (136-145) mmol/L Potassium 3.7 (3.5-5.1) mmol/L Chloride 104 (98-107) mmol/L Carbon Dioxide 27 (21-32) mmol/L Anion Gap 8 (3-11) BUN 13 (6-23) mg/dl Creatinine 1.00 (0.6-1.2) mg/dl Est Cr Clr Drug Dosing 69.1 ml/min Est GFR ( Amer) 72.4 ml/min Est GFR (Non-Af Amer) 62.5 ml/min BUN/Creatinine Ratio 13.0 (10-20) Glucose 98 (70-99(Fasting)) mg/dl Calcium 8.9 (8.5-10.1) mg/dl Total Bilirubin 0.4 (0.2-1.0) mg/dl AST 21 (13-39) U/L ALT 19 (7-52) U/L Alkaline Phosphatase 112 H (34-104) U/L Troponin I < 0.03 (0-0.04) ng/ml Total Protein 6.8 (6.0-8.3) gm/dl Albumin 4.2 (3.4-5.0) gm/dl Globulin 2.6 (2.5-4.0) gm/dl Albumin/Globulin Ratio 1.6 (0.9-2) Urine Color Urine Appearance (Clear) Urine pH (4.5-7.5) Ur Specific [place] (1.000-1.030) Urine Protein (Negative) Urine Glucose (UA) (Negative) Urine Ketones (Negative) Urine Blood (Negative) Urine Nitrite (Negative) Urine Bilirubin (Negative) Urine Urobilinogen (Negative) Ur Leukocyte Esterase (Negative) Urine WBC (Auto) (0-5) /hpf Urine RBC (Auto) (0-4) /hpf U Hyaline Cast (Auto) (0-5) /lpf U Epithel Cells (Auto) (0-5) /lpf Urine Bacteria (Auto) (Negative) Salicylates (3.0-30) mg/dl Urine Opiates Screen (Neg) Ur Methadone, Qual (Neg) Acetaminophen (10-30) ug/ml Urine Barbiturates (Neg) Ur Phencyclidine (PCP) (Neg) U Amphetamin/Meth Scrn (Neg) MDMA (Ecstasy) Screen (Neg) U Benzodiazepines Scrn (Neg) Ur Cocaine Metabolite (Neg) U Marijuana (THC) Screen (Neg) Ethyl Alcohol mg/dL (<10.0) mg/dl SARS-CoV-2, RNA, NAAT (NEGATIVE) 10/30/21 10/30/21 10/30/21 Range/Units 12:22 14:27 16:14 WBC (4.8-10.8) K/uL RBC (4.2-5.4) M/uL Hgb (12.0-16.0) g/dL Hct (37-47) % MCV (80-100) fL MCH (25-34) pg MCHC (32-36) g/dL RDW Std Deviation (36.4-46.3) fL RDW Coeff of Vale (11.5-14.5) % Plt Count (130-400) K/uL MPV (7.4-10.4) fL Immature Gran % (Auto) % Neut % (Auto) % Lymph % (Auto) % [place] % (Auto) % Eos % (Auto) % Baso % (Auto) % Neut # (Auto) (1.4-6.5) K/uL Lymph # (Auto) (1.2-3.4) K/uL [place] # (Auto) (0.11-0.59) K/uL Eos # (Auto) (0-0.5) K/uL Baso # (Auto) (0-0.2) K/uL Immature Gran # (Auto) (0.00-0.02) K/uL PT (9.0-12.0) Seconds INR (0.9-1.1) APTT (21.0-31.0) Seconds PTT Ratio D-Dimer (0-500) ug/L FEU VBG pH 7.41 (7.36-7.41) VBG pCO2 48 (38-50) mmHg VBG pO2 25 mmHg VBG HCO3 30 mmol/L VBG O2 Saturation < 60.0 % VBG Base Excess 4.5 mEq/L Barometric Pressure 727.4 mm/Hg Sodium (136-145) mmol/L Potassium (3.5-5.1) mmol/L Chloride (98-107) mmol/L Carbon Dioxide (21-32) mmol/L Anion Gap (3-11) BUN (6-23) mg/dl Creatinine (0.6-1.2) mg/dl Est Cr Clr Drug Dosing ml/min Est GFR ( Amer) ml/min Est GFR (Non-Af Amer) ml/min BUN/Creatinine Ratio (10-20) Glucose (70-99(Fasting)) mg/dl Calcium (8.5-10.1) mg/dl Total Bilirubin (0.2-1.0) mg/dl AST (13-39) U/L ALT (7-52) U/L Alkaline Phosphatase (34-104) U/L Troponin I (0-0.04) ng/ml Total Protein (6.0-8.3) gm/dl Albumin (3.4-5.0) gm/dl Globulin (2.5-4.0) gm/dl Albumin/Globulin Ratio (0.9-2) Urine Color Yellow Urine Appearance Clear (Clear) Urine pH 8.5 H (4.5-7.5) Ur Specific [place] 1.028 (1.000-1.030) Urine Protein Negative (Negative) Urine Glucose (UA) Negative (Negative) Urine Ketones Negative (Negative) Urine Blood Negative (Negative) Urine Nitrite Negative (Negative) Urine Bilirubin Negative (Negative) Urine Urobilinogen Negative (Negative) Ur Leukocyte Esterase 1+ H (Negative) Urine WBC (Auto) 10-30 H (0-5) /hpf Urine RBC (Auto) 0-4 (0-4) /hpf U Hyaline Cast (Auto) 0 (0-5) /lpf U Epithel Cells (Auto) 10-20 H (0-5) /lpf Urine Bacteria (Auto) Negative (Negative) Salicylates (3.0-30) mg/dl Urine Opiates Screen (Neg) Ur Methadone, Qual (Neg) Acetaminophen (10-30) ug/ml Urine Barbiturates (Neg) Ur Phencyclidine (PCP) (Neg) U Amphetamin/Meth Scrn (Neg) MDMA (Ecstasy) Screen (Neg) U Benzodiazepines Scrn (Neg) Ur Cocaine Metabolite (Neg) U Marijuana (THC) Screen (Neg) Ethyl Alcohol mg/dL (<10.0) mg/dl SARS-CoV-2, RNA, NAAT NEGATIVE (NEGATIVE) 10/30/21 10/30/21 10/30/21 Range/Units 16:14 16:32 16:32 WBC (4.8-10.8) K/uL RBC (4.2-5.4) M/uL Hgb (12.0-16.0) g/dL Hct (37-47) % MCV (80-100) fL MCH (25-34) pg MCHC (32-36) g/dL RDW Std Deviation (36.4-46.3) fL RDW Coeff of Vale (11.5-14.5) % Plt Count (130-400) K/uL MPV (7.4-10.4) fL Immature Gran % (Auto) % Neut % (Auto) % Lymph % (Auto) % [place] % (Auto) % Eos % (Auto) % Baso % (Auto) % Neut # (Auto) (1.4-6.5) K/uL Lymph # (Auto) (1.2-3.4) K/uL [place] # (Auto) (0.11-0.59) K/uL Eos # (Auto) (0-0.5) K/uL Baso # (Auto) (0-0.2) K/uL Immature Gran # (Auto) (0.00-0.02) K/uL PT (9.0-12.0) Seconds INR (0.9-1.1) APTT (21.0-31.0) Seconds PTT Ratio D-Dimer (0-500) ug/L FEU VBG pH (7.36-7.41) VBG pCO2 (38-50) mmHg VBG pO2 mmHg VBG HCO3 mmol/L VBG O2 Saturation % VBG Base Excess mEq/L Barometric Pressure mm/Hg Sodium (136-145) mmol/L Potassium (3.5-5.1) mmol/L Chloride (98-107) mmol/L Carbon Dioxide (21-32) mmol/L Anion Gap (3-11) BUN (6-23) mg/dl Creatinine (0.6-1.2) mg/dl Est Cr Clr Drug Dosing ml/min Est GFR ( Amer) ml/min Est GFR (Non-Af Amer) ml/min BUN/Creatinine Ratio (10-20) Glucose (70-99(Fasting)) mg/dl Calcium (8.5-10.1) mg/dl Total Bilirubin (0.2-1.0) mg/dl AST (13-39) U/L ALT (7-52) U/L Alkaline Phosphatase (34-104) U/L Troponin I (0-0.04) ng/ml Total Protein (6.0-8.3) gm/dl Albumin (3.4-5.0) gm/dl Globulin (2.5-4.0) gm/dl Albumin/Globulin Ratio (0.9-2) Urine Color Urine Appearance (Clear) Urine pH (4.5-7.5) Ur Specific [place] (1.000-1.030) Urine Protein (Negative) Urine Glucose (UA) (Negative) Urine Ketones (Negative) Urine Blood (Negative) Urine Nitrite (Negative) Urine Bilirubin (Negative) Urine Urobilinogen (Negative) Ur Leukocyte Esterase (Negative) Urine WBC (Auto) (0-5) /hpf Urine RBC (Auto) (0-4) /hpf U Hyaline Cast (Auto) (0-5) /lpf U Epithel Cells (Auto) (0-5) /lpf Urine Bacteria (Auto) (Negative) Salicylates < 3.0 L (3.0-30) mg/dl Urine Opiates Screen Neg (Neg) Ur Methadone, Qual Neg (Neg) Acetaminophen < 3 L (10-30) ug/ml Urine Barbiturates Neg (Neg) Ur Phencyclidine (PCP) Neg (Neg) U Amphetamin/Meth Scrn Neg (Neg) MDMA (Ecstasy) Screen Neg (Neg) U Benzodiazepines Scrn Neg (Neg) Ur Cocaine Metabolite Neg (Neg) U Marijuana (THC) Screen Neg (Neg) Ethyl Alcohol mg/dL < 10.0 (<10.0) mg/dl SARS-CoV-2, RNA, NAAT (NEGATIVE) Administered Medications Discontinued Medications Acetaminophen (Acetaminophen 500 Mg Tab) 1,000 mg PO NOW STA Stop: 10/30/21 15:21 Last Admin: 10/30/21 17:31 Dose: 1,000 mg Documented by: [id number] Gabapentin (Gabapentin 100 Mg Cap) 100 mg PO NOW STA Stop: 10/30/21 14:35 Last Admin: 10/30/21 14:55 Dose: 100 mg Documented by: [id number] Sodium Chloride (Nss) 500 mls @ 999 mls/hr IV .Q31M STA Stop: 10/30/21 11:30 Last Infusion: 10/30/21 12:59 Dose: 0 mls/hr Documented by: [id number] Admin: 10/30/21 12:12 Dose: 999 mls/hr Documented by: [id number] Sodium Chloride (Nss 1000ml) 1,000 mls @ 999 mls/hr IV .Q1H1M ONE Stop: 10/30/21 17:45 Last Admin: 10/30/21 17:32 Dose: 999 mls/hr Documented by: [id number] Ceftriaxone Sodium (Rocephin) 1,000 mg in 50 mls @ 100 mls/hr IV NOW STA Stop: 10/30/21 17:47 Last Admin: 10/30/21 18:10 Dose: 100 mls/hr Documented by: [id number] Ioversol (Optiray 320 125ml) 120 ml IV ONCE ONE Stop: 10/30/21 13:48 Last Admin: 10/30/21 13:48 Dose: 120 ml Documented by: [id number] Imaging Data Radiologist's Impression: Chest X-Ray 10/30/21 11:00 XR chest 1V portable HISTORY: Dyspnea COMPARISON: Chest 12/18/2020. FINDINGS: The cardiac silhouette is top normal in size. No evidence for pulmonary edema. No focal lung consolidations to suggest pneumonia. Trace bilateral pleural effusions, unchanged. No pneumothorax. Incidental note is made of a right azygos lobe. IMPRESSION: Trace bilateral pleural effusions, unchanged. Otherwise, no acute process within the chest. ACT 112: Negative or not required by law. Electronically signed by: Satish Turner M.D. 10/30/2021 11:34 AM Chest CTA 10/30/21 13:10 CT angio chest PE protocol CLINICAL HISTORY: PE TECHNIQUE: Multidetector row helical CT of the chest was performed. Coronal and sagittal reformations were obtained. Coronal and sagittal MIPS were obtained from the axial data set and were submitted for review. Automated dose lowering techniques and/or adjustment according to patient size were utilized for this exam. Comparison: Comparison is made to CT chest 05/15/2019 FINDINGS: Lungs and pleura: Azygous fissure is seen. There are small bilateral pleural effusions. Heart and pericardium: There is a small pericardial effusion. Vessels: Evaluation for pulmonary embolism is limited due to patient motion. No evidence of central or lobar embolus. Mediastinum and negar: Unremarkable. Chest wall and lower neck: Unremarkable. Abdomen: Unremarkable. Bones: Unremarkable. IMPRESSION: 1. Limited exam without evidence of pulmonary embolism. 2. Small bilateral pleural effusions. ACT 112: Negative or not required by law. Electronically signed by: Bill Wynne M.D. 10/30/2021 1:59 PM Discharge Plan Visit Data Chief Complaint: Shortness of Breath/Dyspnea ED Provider: Rodger Alvares Discharge Problem: Asthma, Anxiety, Tachycardia, UTI (urinary tract infection) Patient Disposition: Home - Self-Care Condition: Good Discharge Instructions Giuseppe/Other Patient Handouts: Asthma Activity Restrictions/Additional Instructions: Continue all medications as prescribed. Rest and avoid any strenuous activity. Call your family doctor to schedule a follow-up appointment. Continue using Motrin and Tylenol directed for fever and body aches. Return if symptoms worsen or if need arises. At this time there is no sign of definite infection so I would not recommend an antibiotic as this could be a fever from a virus. If you start to develop more symptoms it could be consistent with a pneumonia or bronchitis such as productive sputum you should call your family doctor immediately. Forms Stand Alone Forms: My [facility], Virtual Emergency Department, Important Visit Information Prescriptions Prescriptions: New prednisone 20 mg tablet 20 mg PO BID 5 Days Qty: 10 RF: 0 No Action aspirin [Adult Low Dose Aspirin] 81 mg tablet,delayed release (DR/EC) 81 mg PO QAM Qty: 90 RF: 3 hydroxyzine HCl 10 mg tablet 10 mg PO HS Qty: 90 RF: 3 montelukast 10 mg tablet 10 mg PO QPM Qty: 90 RF: 3 pantoprazole 40 mg tablet,delayed release (DR/EC) 40 mg PO QAM Qty: 90 RF: 1 gabapentin 100 mg capsule 100 mg PO TID Qty: 90 RF: 5 albuterol sulfate [Ventolin HFA] 90 mcg/actuation HFA aerosol inhaler 1 inh INH Q6H PRN (Reason: shortness of breath or wheezing) Qty: 3 RF: 1 Dulera 100-5 mcg/actuation HFA aerosol inhaler 2 puff inhalation BID Qty: 3 RF: 1 rosuvastatin 20 mg tablet 20 mg PO HS Qty: 90 RF: 3 famotidine [Pepcid] 20 mg tablet 20 mg PO BID Qty: 180 RF: 3 cyclobenzaprine 10 mg tablet 10 mg PO HS Qty: 90 RF: 1 prazosin 1 mg capsule 1 mg PO QAM RF: 0 (DME) nebulizers Misc See Rx Instructions miscellaneous .MEDSUPPLY Qty: 1 RF: 0 Doterra tablet 1 tab PO BID RF: 0 naproxen 500 mg Tablet 500 mg PO BID RF: 0 Active Heart 1 tab PO BID RF: 0 Biocomplete 1 tab PO BID RF: 0 furosemide [Lasix] 20 mg tablet 20 mg PO QAM RF: 0 nystatin 100,000 unit/gram powder 1 applic topical BID PRN (Reason: Rash) RF: 0 cholecalciferol (vitamin D3) 125 mcg (5,000 unit) capsule 125 mcg PO QAM RF: 0 venlafaxine 75 mg tablet extended release 24hr 75 mg PO QAM RF: 0 Spiriva Respimat 2.5 mcg/actuation mist 1 puff INH BID RF: 0 potassium chloride 20 mEq tablet extended release 20 meq PO QAM RF: 0 prazosin 1 mg Capsule 2 mg PO HS RF: 0 lamotrigine 100 mg Tablet 100 mg PO QAM RF: 0 albuterol sulfate 2.5 mg /3 mL (0.083 %) solution for nebulization 2.5 mg inhalation Q6H PRN (Reason: sob) RF: 0 Referrals Referrals: Florencia Suarez MD [Primary Care Provider] -
--- NOTE | 2021-10-30 11:35 | XRay Report ---
XR chest 1V portable HISTORY: Dyspnea COMPARISON: Chest 12/18/2020. FINDINGS: The cardiac silhouette is top normal in size. No evidence for pulmonary edema. No focal mike g consolidations to suggest pneumonia. Trace bilateral pleural effusions, unchanged. No pneumothorax. Incidental note is made of a right azygos lobe. IMPRESSION: Trace bilateral pleural effusions, unchanged. Otherwise, no acute process within the chest. ACT 112: Negative or not required by law. Electronically signed by: Satish Turner M.D. 10/30/2021 11:34 AM
[2021-10-30 12:32] LABS: Basophils # (auto) 0.01 K/uL (0-0.2); Basophils % (auto) 0.1 %; Eosinophils # (auto) 0.05 K/uL (0-0.5); Eosinophils % (auto) 0.7 %; Hematocrit (blood only) 40.2 % (37-47); Hemoglobin 13.2 g/dL (12.0-16.0); Immature Granulocytes # (auto) 0.01 K/uL (0.00-0.02); Immature Granulocytes % (auto) 0.1 %; Lymphocytes # (auto) 0.65 K/uL (1.2-3.4); Lymphocytes % (auto) 9.3 %; Mean Corpuscular Hemoglobin 27.7 pg (25-34); Mean Corpuscular Hgb Conc 32.8 g/dL (32-36); Mean Corpuscular Volume 84.3 fL (80-100); Mean Platelet Volume 8.6 fL (7.4-10.4); Monocytes # (auto) 0.35 K/uL (0.11-0.59); Neutrophils # (auto) 5.94 K/uL (1.4-6.5); Neutrophils % (auto) 84.8 %; Platelet Count 277 K/uL (130-400); RDW Coefficient of Variation 13.7 % (11.5-14.5); RDW Standard Deviation 42.4 fL (36.4-46.3); Red Blood Count 4.77 M/uL (4.2-5.4); White Blood Count 7.01 K/uL (4.8-10.8)
[2021-10-30 12:33] LABS: Base Excess VBG 4.5 mEq/L; HCO3 VBG 30 mmol/L; PCO2 VBG 48 mmHg (38-50); PO2 VBG 25 mmHg; pH VBG 7.41 (7.36-7.41)
[2021-10-30 12:34] LABS: Oxygen Saturation VBG < 60.0 %
[2021-10-30 12:47] LABS: INR 0.9 (0.9-1.1); Partial Thromboplastin Time 26.5 Seconds (21.0-31.0); Prothrombin Time 9.6 Seconds (9.0-12.0)
[2021-10-30 12:51] LABS: Alanine Aminotransferase 19 U/L (7-52); Albumin Globulin Ratio 1.6 (0.9-2); Albumin Level 4.2 gm/dl (3.4-5.0); Alkaline Phosphatase 112 U/L (34-104); Anion Gap 8 (3-11); Aspartate Aminotransferase 21 U/L (13-39); Bilirubin,Total 0.4 mg/dl (0.2-1.0); Blood Urea Nitrogen 13 mg/dl (6-23); Calcium 8.9 mg/dl (8.5-10.1); Carbon Dioxide 27 mmol/L (21-32); Chloride 104 mmol/L (98-107); Creatinine Clr Calc Pharmacy 69.1 ml/min; Est GFR (African American) 72.4 ml/min; Est GFR (Non-African American) 62.5 ml/min; Globulin 2.6 gm/dl (2.5-4.0); Glucose 98 mg/dl (70-99(Fasting)); Potassium 3.7 mmol/L (3.5-5.1); Sodium 139 mmol/L (136-145); Total Protein 6.8 gm/dl (6.0-8.3)
[2021-10-30 12:53] LABS: Troponin I < 0.03 ng/ml (0-0.04)
[2021-10-30 13:03] LABS: D Dimer 880 ug/L FEU (0-500)
[2021-10-30] MEDS ORDERED: OPTIRAY 320 125ml IV ONE (13:47)
--- NOTE | 2021-10-30 14:01 | CT Scan Report ---
CT angio chest PE protocol CLINICAL HISTORY: PE TECHNIQUE: Multidetector row helical CT of the chest was performed. Coronal and sagittal reformations were obtained. Coronal and sagittal MIPS were obtained from the axial data set and were submitted fo r review. Automated dose lowering techniques and/or adjustment according to patient size were utiliz ed for this exam. Comparison: Comparison is made to CT chest 05/15/2019 FINDINGS: Lungs and pleura: Azygous fissure is seen. There are small bilateral pleural effusions. Heart and pericardium: There is a small pericardial effusion. Vessels: Evaluation for pulmonary embolism is limited due to patient motion. No evidence of central o r lobar embolus. Mediastinum and negar: Unremarkable. Chest wall and lower neck: Unremarkable. Abdomen: Unremarkable. Bones: Unremarkable. IMPRESSION: 1. Limited exam without evidence of pulmonary embolism. 2. Small bilateral pleural effusions. ACT 112: Negative or not required by law. Electronically signed by: Bill Wynne M.D. 10/30/2021 1:59 PM
[2021-10-30] MEDS ORDERED: GABAPENTIN 600 MG TAB PO STA (14:20)
[2021-10-30] MEDS ORDERED: GABAPENTIN 100 MG CAP PO STA (14:34)
[2021-10-30] MEDS ORDERED: ACETAMINOPHEN 500 MG TAB PO STA (15:20)
[2021-10-30 16:28] LABS: Appearance Urine Clear (Clear); Bacteria Urine Automated Negative (Negative); Bilirubin Urine Negative (Negative); Blood Urine Negative (Negative); Cast Urine Automated 0 /lpf (0-5); Color Urine Yellow; Glucose Urine UA Negative (Negative); Ketones Urine Negative (Negative); Leukocyte Esterase Urine 1+ (Negative); Nitrite Urine Negative (Negative); Protein Urine Negative (Negative); RBC Urine Automated 0-4 /hpf (0-4); Specific Gravity Urine 1.028 (1.000-1.030); Urobilinogen Urine Negative (Negative); pH Urine 8.5 (4.5-7.5)
[2021-10-30] MEDS ORDERED: SODIUM CHLORIDE 0.9% 1000ML 1,000 ML IV ONE (16:45)
[2021-10-30 16:51] LABS: Amphetamines+Metham, Urine Neg (Neg); Barbiturates, Urine Neg (Neg); Benzodiazepine, Urine Neg (Neg); Cocaine, Urine Neg (Neg); MDMA (Ecstacy), Urine Neg (Neg); Methadone, Urine Neg (Neg); Opiate, Urine Neg (Neg); Phencyclidine, Urine Neg (Neg)
[2021-10-30 17:09] LABS: Acetaminophen < 3 ug/ml (10-30); Salicylate < 3.0 mg/dl (3.0-30)
[2021-10-30] MEDS ORDERED: cefTRIAXone SODIUM 1,000 MG/50 ML BAG IV STA (17:18)
[2021-10-30] MEDS ORDERED: ACETAMINOPHEN 500 MG TAB ONE (17:29)
--- NOTE | 2021-10-31 00:23 | Emergency Department Note ---
ED Visit Note ED Physician Sign Out Note: 56-year-old female who was initially evaluated by Dr. Alvares earlier in the day for shortness of breath and extensive medical work-up which was unremarkable. After evaluation patient noting that she was feeling suicidal and plan was to voluntarily hospitalize to psychiatric facility. Patient is not here in the 302 and made no specific suicidal plans nor gestures. She was signed out to me pending psychiatric placement. Signed out to Dr Gardner pending placement. No issues and patient's daily medications were ordered. Yosef Arnold MD : Asthma Qualifiers: Asthma severity: mild Asthma persistence: unspecified Asthma complication type: unspecified Qualified Code(s): J45.909 - Unspecified asthma, uncomplicated UTI (urinary tract infection) Qualifiers: Urinary tract infection type: site unspecified Hematuria presence: without hematuria Qualified Code(s): N39.0 - Urinary tract infection, site not specified
[2021-10-31] MEDS ORDERED: ALBUTEROL HFA 8 GM INHALER INH PRN (01:52)
[2021-10-31] MEDS ORDERED: ALBUTEROL 0.083% NEBU SOLN 3 ML VIAL INH PRN (01:52)
[2021-10-31] MEDS: ROSUVASTATIN CALCIUM 20 MG TAB PO SCH ×2 (03:13→20:25)
[2021-10-31] MEDS: PRAZOSIN HCL 1 MG CAP PO SCH ×3 (03:14→20:24)
[2021-10-31] MEDS: GABAPENTIN 100 MG CAP PO SCH ×3 (03:14→20:25)
[2021-10-31] MEDS: hydrOXYzine HCl 10 MG TAB PO SCH ×2 (03:14→20:24)
[2021-10-31] MEDS: NAPROXEN 250 MG TAB PO SCH ×3 (03:30→20:26)
[2021-10-31] MEDS: CYCLOBENZAPRINE HCL 10 MG TAB PO SCH ×2 (03:31→20:25)
[2021-10-31] MEDS: MONTELUKAST SODIUM 10 MG TABLET PO SCH ×2 (03:31→20:26)
[2021-10-31] MEDS: FAMOTIDINE 20 MG TAB PO SCH ×3 (03:31→20:26)
--- NOTE | 2021-10-31 03:50 | Emergency Department Note ---
ED Visit Note This case was signed out to me at change of shift awaiting bed placement. Morning medications were ordered. The patient rested overnight. The case will be signed out to Dr. Wadsworth at change of shift awaiting final disposition. . : Asthma Qualifiers: Asthma severity: mild Asthma persistence: unspecified Asthma complication type: unspecified Qualified Code(s): J45.909 - Unspecified asthma, uncomplicated UTI (urinary tract infection) Qualifiers: Urinary tract infection type: site unspecified Hematuria presence: without hematuria Qualified Code(s): N39.0 - Urinary tract infection, site not specified
--- NOTE | 2021-10-31 06:59 | Electrocardiogram Report ---
Test Reason : Blood Pressure : / mmHG Vent. Rate : 129 BPM Atrial Rate : 129 BPM P-R Int : 162 ms QRS Dur : 064 ms QT Int : 302 ms P-R-T Axes : 042 033 030 degrees QTc Int : 442 ms Sinus tachycardia Low voltage QRS Cannot rule out Anterior infarct , age undetermined Abnormal ECG When compared with ECG of 18-DEC-2020 12:30, No significant change was found Confirmed by Erick Peacock ([id number]) on 10/31/2021 6:58:44 AM Referred By: REFERRED SELF Confirmed By:Erick Peacock
[2021-10-31] MEDS: lamoTRIgine 100 MG TAB PO SCH (08:53)
[2021-10-31] MEDS: FUROSEMIDE 20 MG TAB PO SCH (08:53)
[2021-10-31] MEDS: ASPIRIN 81 MG ECTAB PO SCH (08:53)
[2021-10-31] MEDS: PANTOprazole 40 MG TAB PO SCH (08:54)
[2021-10-31] MEDS: POTASSIUM CHLORIDE CRTAB 20 MEQ TABCR PO SCH (08:54)
[2021-10-31] MEDS: VENLAFAXINE HCL XR 75 MG CAPXR PO SCH (08:54)
[2021-10-31] MEDS ORDERED: NON-FORMULARY MEDICATION (Tiotropium Bromide [Spiriva Respimat] 2.5 mcg/actuation mist) INH SCH (09:00)
[2021-10-31] MEDS ORDERED: UMECLIDINIUM BROMIDE 62.5MCG/BLISTER 7 PUFFS/INHALER INH SCH (09:00)
[2021-10-31] MEDS ORDERED: NON-FORMULARY MEDICATION (Cholecalciferol (Vitamin D3) 125 mcg (5,000 unit) capsule) PO SCH (09:00)
[2021-10-31] MEDS: CHOLECALCIFEROL 5,000 UNITS 125 MCG TAB PO SCH (10:37)
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
--- NOTE | 2021-10-31 14:30 | Emergency Department Note ---
ED Visit Note I received this patient in signout at the change of shift from Dr. Gardner pending a mental health bed search. Bed search is currently suspended until morning. The case has been signed out to Dr. Barbara mcnally final disposition. . : Asthma Qualifiers: Asthma severity: mild Asthma persistence: unspecified Asthma complication type: unspecified Qualified Code(s): J45.909 - Unspecified asthma, uncomplicated UTI (urinary tract infection) Qualifiers: Urinary tract infection type: site unspecified Hematuria presence: without hematuria Qualified Code(s): N39.0 - Urinary tract infection, site not specified
--- NOTE | 2021-10-31 15:44 | Emergency Department Note ---
ED Visit Note Received this patient in signout. She is here with some suicidal ideations requesting voluntary inpatient mental health treatment. Bed search in progress at this point. No issues this evening. Signed out pending inpatient bed placement. . : Asthma Qualifiers: Asthma severity: mild Asthma persistence: unspecified Asthma complication type: unspecified Qualified Code(s): J45.909 - Unspecified asthma, uncomplicated UTI (urinary tract infection) Qualifiers: Urinary tract infection type: site unspecified Hematuria presence: without hematuria Qualified Code(s): N39.0 - Urinary tract infection, site not specified
[2021-10-31] MEDS ORDERED: DULERA INH SCH (23:15)
--- NOTE | 2021-10-31 23:45 | Emergency Department Note ---
ED Visit Note This case was signed out to me at change of shift awaiting bed placement. The patient rested through the night. The case will be signed out to Dr. Wadsworth at change of shift awaiting bed placement. . : Asthma Qualifiers: Asthma severity: mild Asthma persistence: unspecified Asthma complication type: unspecified Qualified Code(s): J45.909 - Unspecified asthma, uncomplicated UTI (urinary tract infection) Qualifiers: Urinary tract infection type: site unspecified Hematuria presence: without hematuria Qualified Code(s): N39.0 - Urinary tract infection, site not specified
[2021-11-01] MEDS: MOMETASONE/FORMOTEROL INH SCH ×2 (00:17→08:37)
[2021-11-01] MEDS: PRAZOSIN HCL 1 MG CAP PO SCH ×2 (08:35→19:37)
[2021-11-01] MEDS: CHOLECALCIFEROL 5,000 UNITS 125 MCG TAB PO SCH (08:35)
[2021-11-01] MEDS: VENLAFAXINE HCL XR 75 MG CAPXR PO SCH (08:35)
[2021-11-01] MEDS: lamoTRIgine 100 MG TAB PO SCH (08:35)
[2021-11-01] MEDS: FUROSEMIDE 20 MG TAB PO SCH (08:35)
[2021-11-01] MEDS: ASPIRIN 81 MG ECTAB PO SCH (08:35)
[2021-11-01] MEDS: NAPROXEN 250 MG TAB PO SCH (08:36)
[2021-11-01] MEDS: POTASSIUM CHLORIDE CRTAB 20 MEQ TABCR PO SCH (08:36)
[2021-11-01] MEDS: FAMOTIDINE 20 MG TAB PO SCH ×2 (08:36→19:36)
[2021-11-01] MEDS: GABAPENTIN 100 MG CAP PO SCH ×3 (08:36→19:35)
[2021-11-01] MEDS: PANTOprazole 40 MG TAB PO SCH (08:36)
[2021-11-01] MEDS ORDERED: TIOTROPIUM BROMIDE 5 PUFF/90 MCG INH INH SCH ×2 (09:00)
[2021-11-01] MEDS ORDERED: MAGNESIUM HYDROXIDE SUSP 30 ML UDC PO PRN (09:30)
[2021-11-01] MEDS ORDERED: SODIUM CHLORIDE 0.65% NA SOLN 45 ML (OCEAN) PRN (09:30)
[2021-11-01] MEDS ORDERED: BISMUTH SUBSALICYLATE LIQD 236 ML PO PRN (09:30)
[2021-11-01] MEDS ORDERED: ACETAMINOPHEN 325 MG TAB PO PRN (09:30)
[2021-11-01] MEDS ORDERED: hydrOXYzine HCl 25 MG TAB PO PRN (09:30)
[2021-11-01] MEDS ORDERED: ALBUTEROL HFA 8 GM INHALER INH PRN (09:53)
[2021-11-01] MEDS ORDERED: ALBUTEROL 0.083% NEBU SOLN 3 ML VIAL NEB PRN (09:53)
[2021-11-01] MEDS ORDERED: NAPROXEN 250 MG TAB PO PRN (10:21)
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
[2021-11-01] MEDS ORDERED: NYSTATIN POWDER 15GM BTL EXT PRN (12:17)
[2021-11-01] MEDS ORDERED: HYDROCORTISONE HC 2.5% CRM 30GM TUBE EXT PRN (12:17)
[2021-11-01] MEDS: hydrOXYzine HCl 25 MG TAB PO PRN (14:24)
[2021-11-01] MEDS: CYCLOBENZAPRINE HCL 10 MG TAB PO SCH (19:36)
[2021-11-01] MEDS: MONTELUKAST SODIUM 10 MG TABLET PO SCH (19:37)
[2021-11-01] MEDS: DULERA INH SCH (19:38)
[2021-11-01] MEDS ORDERED: NAPROXEN 250 MG TAB PO SCH (21:00)
[2021-11-02] MEDS: PANTOprazole 40 MG TAB PO SCH (06:25)
[2021-11-02] MEDS: GABAPENTIN 100 MG CAP PO SCH ×3 (07:28→19:14)
[2021-11-02] MEDS: POTASSIUM CHLORIDE CRTAB 20 MEQ TABCR PO SCH (07:28)
[2021-11-02] MEDS: CHOLECALCIFEROL 5,000 UNITS 125 MCG TAB PO SCH (07:28)
[2021-11-02] MEDS: VENLAFAXINE HCL XR 75 MG CAPXR PO SCH (07:29)
[2021-11-02] MEDS: PRAZOSIN HCL 1 MG CAP PO SCH ×2 (07:29→19:13)
[2021-11-02] MEDS: FAMOTIDINE 20 MG TAB PO SCH ×2 (07:29→19:14)
[2021-11-02] MEDS: ROSUVASTATIN CALCIUM 20 MG TAB PO SCH (07:29)
[2021-11-02] MEDS: ASPIRIN 81 MG CHEW PO SCH (07:29)
[2021-11-02] MEDS: FUROSEMIDE 20 MG TAB PO SCH (07:30)
[2021-11-02] MEDS: lamoTRIgine 25 MG TAB PO SCH (07:30)
[2021-11-02] MEDS: TIOTROPIUM BROMIDE 5 PUFF/90 MCG INH INH SCH (07:30)
[2021-11-02] MEDS: DULERA INH SCH ×2 (07:31→19:15)
[2021-11-02] MEDS ORDERED: UMECLIDINIUM BROMIDE 62.5MCG/BLISTER 7 PUFFS/INHALER INH SCH (09:00)
--- NOTE | 2021-11-02 12:57 | Psychiatric Progress Note ---
Date of Service November 02, 2021 Impression / Recommendations Impression 56 yo female with intense panic that included suicidal statements in the context of finality of her marriage break up. Still ruminates about losses during 2019, lives alone, and takes significant number of medications/inhalers (a lot to manage in the context of depressive symptoms). She continues to require inpatient psychiatric hospitalization for safety and monitoring. 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 (1) Major depressive disorder with current active episode: (2) PTSD (post-traumatic stress disorder): (3) UTI (urinary tract infection): 11/02--received IV abx in ED (Ceftriaxone), UC final for Gardnerella which is likely vaginal and 1 IV dose of ceftriaxone should be adequate. (4) Asthma: 11/01/21: work up negative for PE, home inhalers ordered. 11/02/21: continue current medications and treatment plan, therapeutic interventions around safety 11/01/21: The patient was admitted to the [facility]) on q15 min checks (behavioral with suicide precautions) for safety. The patient will participate in group, recreational, and milieu therapies and will be offered additional individual and family sessions as clinically appropriate. Risks/benefits/alternatives reviewed re: Lamictal for mood stabilization. Discussion included but was not limited to slow titration to decrease risks of Alex's Les syndrome. Patient agrees to hold med/notify current prescriber of rash immediately. She is requesting increase to further trial as traditionally hasn't responded well to antidepressants and this is "first mood stabilizer" trial. She feels she was doing well with medications up until the panic attack on Tuesday and attributes to psychosocial changes rather than med failure. There is no evidence of Etoh withdrawal. Inventory Assets Strengths: ongoing relationship with therapist, identifies friend network Needs: ongoing processing of divorce, family session Risk Factors Assessment Male: No : Yes Do You Have Access To A Gun?: No Health Problems: Yes Mental Health Diagnoses: Yes Substance Use Disorders: No Previous Attempt: Yes (cut) Family History of Suicide: Yes (attempt) Previous Psychiatric Hospitalization: Yes Protective Factors Assessment : No Employed: No Stable Relationships: Yes Interval History Identifying Information CARLOS DOTY is a 56-year-old F who currently lives in alone in [place], has a history of a prior admit to in 2019, and was admitted on 11/01/21 09:31 on a 201 voluntary commitment for SI in the context of panic. She was boarding in the ED since presenting with SOB on 10/30/21. Chief Complaint "I don't trust that I actually said those things". referring to her SI in the ED. Review of Systems Sleep Information Total Hours of Sleep: 5.75 Sleep Comments: pt SHLOMO @0545. pt on q-15 minute checks Meal Information Percent Meal Consumed - Breakfast: 50 Percent Meal Consumed - Lunch: 100 Percent Meal Consumed - Dinner: 100 Subjective Subjective Patient was seen & assessed and interval progress reviewed with treatment team. Very different presentation this am 1-on-1 with provider, tearful and making gamey statements while interacting with peer in day room is bright and chatty (not slowed at all). The patient who had been so focussed on going home and not being suicidal is now saying she doesn't remember her medical work up in ED and is fearful re: that. 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 She plans to utilize CM for support. Is now focussed on her therapist stating she needed to be here and reviewed that therapist had spoken to CM to provide collateral, medical decision making was ED attending. She then alluded to wanting to share information about her with her son in a family meeting that will "change his world and I'm just not ready for all that." After consistently denying SI she now states she did have thoughts yesterday on unit and was looking for things that she could harm herself with. She denies those thoughts currently and it should be noted that was in the context of discussing discharge as that is what she requested. Physical Exam Psychiatric Orientation: alert and oriented x 3 Apperance: appropriately dressed and appropriately groomed Eye Contact: good eye contact Motor Behavior: no abnormal motor movements Speech: normal rate/rhythm/volume of speech Affect: + depressed affect Mood: + depressed mood Thought Process: + circumstantial thought process Thought Content: reality based without delusions Suicidal Thoughts: denies suicidal thoughts, denies suicidal plan and denies suicidal intent Homicidal Thoughts: denies homicidal thoughts Hallucinations: no auditory hallucinations and no visual hallucinations Cognition: attention grossly intact and language grossly intact Estimated Intelligence: consistent with education level Insight: + limited insight Judgement: + limited judgement Vital Signs (Past 24 Hours) Last Vital Signs Temp 36.4 C L 11/02/21 06:49 Pulse 103 H 11/02/21 06:50 Resp 18 11/02/21 06:49 BP 126/78 11/02/21 06:50 Pulse Ox 96 11/01/21 08:40 Results & Data ([facility]) Current Inpatient Medications Current Inpatient Medications: Current Inpatient Medications Acetaminophen (Acetaminophen 325 Mg Tab) 650 mg PO Q4H PRN PRN Reason: Headache or Minor Fever Stop: 12/01/21 09:29 Al Hydrox/Mg Hydrox/Simethicone (Aluminum/Magnesium Susp 30 Ml Udc) 30 ml PO Q4H PRN PRN Reason: GI Upset Stop: 12/01/21 09:29 Albuterol (Albuterol 0.083% Nebu Soln 3 Ml Vial) 2.5 mg NEB Q6R PRN; Protocol PRN Reason: Wheezing Stop: 12/01/21 09:52 Albuterol (Albuterol Hfa 8 Gm Inhaler) 1 puffs INH Q6 PRN PRN Reason: Wheezing Stop: 12/01/21 11:59 Aspirin (Aspirin 81 Mg Chew) 81 mg PO DAILY ISAIAH Stop: 12/02/21 08:59 Last Admin: 11/02/21 07:29 Dose: 81 mg Documented by: Bismuth Subsalicylate (Bismuth Subsalicylate Liqd 236 Ml) 15 ml PO PRN PRN PRN Reason: Loose Stool Stop: 12/01/21 09:29 Cyclobenzaprine HCl (Cyclobenzaprine Hcl 10 Mg Tab) 10 mg PO HS ISAIAH Stop: 12/01/21 21:59 Last Admin: 11/01/21 19:36 Dose: 10 mg Documented by: Famotidine (Famotidine 20 Mg Tab) 20 mg PO BID ISAIAH Stop: 12/01/21 20:59 Last Admin: 11/02/21 07:29 Dose: 20 mg Documented by: Furosemide (Furosemide 20 Mg Tab) 20 mg PO QAM ISAIAH Stop: 12/02/21 08:59 Last Admin: 11/02/21 07:30 Dose: 20 mg Documented by: Gabapentin (Gabapentin 100 Mg Cap) 100 mg PO TID ISAIAH Stop: 12/01/21 13:59 Last Admin: 11/02/21 07:28 Dose: 100 mg Documented by: Hydrocortisone (Hydrocortisone Hc 2.5% Crm 30gm Tube) 1 appln EXT QID PRN PRN Reason: Hemorrhoids Stop: 12/01/21 12:16 Hydroxyzine HCl (Hydroxyzine Hcl 25 Mg Tab) 50 mg PO HSZ PRN PRN Reason: Insomnia Stop: 12/01/21 09:29 Hydroxyzine HCl (Hydroxyzine Hcl 25 Mg Tab) 25 mg PO Q4H PRN PRN Reason: Anxiety Stop: 12/01/21 09:29 Last Admin: 11/01/21 14:24 Dose: 25 mg Documented by: Lamotrigine (Lamotrigine 25 Mg Tab) 150 mg PO QAM [facility] Stop: 12/02/21 08:59 Last Admin: 11/02/21 07:30 Dose: 150 mg Documented by: Magnesium Hydroxide (Magnesium Hydroxide Susp 30 Ml Udc) 30 ml PO DAILY PRN PRN Reason: Constipation Stop: 12/01/21 09:29 Mometasone Furoate/Formoterol Fumar (Dulera 100/5(Mometasone/Formoterol)) 2 ea INH BID ISAIAH Stop: 12/01/21 20:59 Last Admin: 11/02/21 07:31 Dose: 2 ea Documented by: Montelukast Sodium (Montelukast Sodium 10 Mg Tablet) 10 mg PO HS ISAIAH Stop: 12/01/21 21:59 Last Admin: 11/01/21 19:37 Dose: 10 mg Documented by: Naproxen (Naproxen 250 Mg Tab) 500 mg PO BID PRN PRN Reason: Pain Stop: 12/01/21 20:59 Nystatin (Nystatin Powder 15gm Btl) 1 appln EXT BID PRN PRN Reason: Rash Stop: 12/01/21 12:16 Pantoprazole Sodium (Pantoprazole 40 Mg Tab) 40 mg PO QAM [facility] Stop: 12/02/21 08:59 Last Admin: 11/02/21 06:25 Dose: 40 mg Documented by: Potassium Chloride (Potassium Chloride Crtab 20 Meq Tabcr) 20 meq PO QAM [facility] Stop: 12/02/21 08:59 Last Admin: 11/02/21 07:28 Dose: 20 meq Documented by: Prazosin HCl (Prazosin Hcl 1 Mg Cap) 1 mg PO QAM ISAIAH Stop: 12/02/21 08:59 Last Admin: 11/02/21 07:29 Dose: 1 mg Documented by: Prazosin HCl (Prazosin Hcl 1 Mg Cap) 2 mg PO HS ISAIAH Stop: 12/01/21 21:59 Last Admin: 11/01/21 19:37 Dose: 2 mg Documented by: Rosuvastatin Calcium (Rosuvastatin Calcium 20 Mg Tab) 20 mg PO QAM ISAIAH Stop: 12/02/21 08:59 Last Admin: 11/02/21 07:29 Dose: 20 mg Documented by: Sodium Chloride (Sodium Chloride 0.65% Na Soln 45 Ml ([place])) 1 - 2 sprays NA PRN PRN PRN Reason: Nasal Dryness/Congestion Stop: 12/01/21 09:29 Tiotropium [place] (Tiotropium [place] 5 Puff/90 Mcg Inh) 1 puffs INH QAM ISAIAH Stop: 12/02/21 08:59 Last Admin: 11/02/21 07:30 Dose: 1 puffs Documented by: Venlafaxine HCl (Venlafaxine Hcl Xr 75 Mg Capxr) 75 mg PO QAM ISAIAH Stop: 12/02/21 08:59 Last Admin: 11/02/21 07:29 Dose: 75 mg Documented by: Vitamin D (Cholecalciferol 5,000 Units 125 Mcg Tab) 5,000 units PO QAM ISAIAH Stop: 12/02/21 08:59 Last Admin: 11/02/21 07:28 Dose: 5,000 units Documented by: Mental Health & Subst Abuse Tx Psychiatrist Name of Psychiatrist: [facility] [place] Psychiatrist's Date of Appointment with Psychiatrist: 11/12/21 Time of Appointment with Psychiatrist: 10:50am Psychiatric Appointment Comment: [address], [place] [address] Therapist Name of Therapist: Room to Vanda Saldana Therapist's Therapy Appointment Comment: [address], [place] [address] Rn First Assistant Name of Rn First Assistant: Sydnee Dixon Phone Number for Rn First Assistant: [phone] Date of Appointment with Rn First Assistant: 11/04/21 Time of Appointment with Rn First Assistant: 3pm Case Management Appointment Comment: [id number], [place] [address] Post Discharge Appointments Primary Care Physician Name Of Family Doctor: LELE Sheets Primary Care Provider Appointment Comment: [address] [place] [address] [place], [place] [id number] (1) UTI (urinary tract infection) Hematuria presence: without hematuria Urinary tract infection type: site unspecified Qualified Code(s): N39.0 - Urinary tract infection, site not specified (2) Asthma Asthma complication type: unspecified Asthma persistence: unspecified Asthma severity: mild Qualified Code(s): J45.909 - Unspecified asthma, uncomplicated
[2021-11-02] MEDS: ALUMINUM/MAGNESIUM SUSP 30 ML UDC PO PRN (13:48)
[2021-11-02] MEDS: MONTELUKAST SODIUM 10 MG TABLET PO SCH (19:13)
[2021-11-02] MEDS: CYCLOBENZAPRINE HCL 10 MG TAB PO SCH (19:14)
[2021-11-03] MEDS: ASPIRIN 81 MG CHEW PO SCH (08:28)
[2021-11-03] MEDS: CHOLECALCIFEROL 5,000 UNITS 125 MCG TAB PO SCH (08:29)
[2021-11-03] MEDS: FUROSEMIDE 20 MG TAB PO SCH (08:29)
[2021-11-03] MEDS: FAMOTIDINE 20 MG TAB PO SCH ×2 (08:29→21:06)
[2021-11-03] MEDS: GABAPENTIN 100 MG CAP PO SCH ×3 (08:30→21:06)
[2021-11-03] MEDS: lamoTRIgine 25 MG TAB PO SCH (08:30)
[2021-11-03] MEDS: DULERA INH SCH ×2 (08:31→21:07)
[2021-11-03] MEDS: PANTOprazole 40 MG TAB PO SCH (08:32)
[2021-11-03] MEDS: PRAZOSIN HCL 1 MG CAP PO SCH ×2 (08:32→21:06)
[2021-11-03] MEDS: POTASSIUM CHLORIDE CRTAB 20 MEQ TABCR PO SCH (08:32)
[2021-11-03] MEDS: ROSUVASTATIN CALCIUM 20 MG TAB PO SCH (08:33)
[2021-11-03] MEDS: VENLAFAXINE HCL XR 75 MG CAPXR PO SCH (08:33)
[2021-11-03] MEDS: TIOTROPIUM BROMIDE 5 PUFF/90 MCG INH INH SCH (08:33)
[2021-11-03] MEDS: ALUMINUM/MAGNESIUM SUSP 30 ML UDC PO PRN (09:51)
[2021-11-03] MEDS: LORazepam 1 MG TAB PO PRN (11:23)
--- NOTE | 2021-11-03 12:00 | Psychiatric Progress Note ---
Date of Service November 03, 2021 Impression / Recommendations Impression 56 yo female with intense panic that included suicidal statements in the context of finality of her marriage break up. Still ruminates about losses during 2019, lives alone, and takes significant number of medications/inhalers (a lot to manage in the context of depressive symptoms). She continues to require inpatient psychiatric hospitalization for safety and monitoring. 11/03/21: intermittent regression around psychosocial stressors (1) Major depressive disorder with current active episode: (2) PTSD (post-traumatic stress disorder): (3) UTI (urinary tract infection): 11/02--received IV abx in ED (Ceftriaxone), UC final for Gardnerella which is likely vaginal and 1 IV dose of ceftriaxone should be adequate. (4) Asthma: 11/01/21: work up negative for PE, home inhalers ordered. 11/03/21: prn Ativan 1 mg stat, hold am Effexor XR as issues this am around the same time as yesterday. 11/02/21: continue current medications and treatment plan, therapeutic interventions around safety 11/01/21: The patient was admitted to the [facility] ([facility]) on q15 min checks (behavioral with suicide precautions) for safety. The patient will participate in group, recreational, and milieu therapies and will be offered additional individual and family sessions as clinically appropriate. Risks/benefits/alternatives reviewed re: Lamictal for mood stabilization. Discussion included but was not limited to slow titration to decrease risks of Alex's Les syndrome. Patient agrees to hold med/notify current prescriber of rash immediately. She is requesting increase to further trial as traditionally hasn't responded well to antidepressants and this is "first mood stabilizer" trial. She feels she was doing well with medications up until the panic attack on Tuesday and attributes to psychosocial changes rather than med failure. There is no evidence of Etoh withdrawal. Inventory Assets Strengths: ongoing relationship with therapist, identifies friend network Needs: ongoing processing of divorce, family session Risk Factors Assessment Male: No : Yes Do You Have Access To A Gun?: No Health Problems: Yes Mental Health Diagnoses: Yes Substance Use Disorders: No Previous Attempt: Yes (cut) Family History of Suicide: Yes (attempt) Previous Psychiatric Hospitalization: Yes Protective Factors Assessment : No Employed: No Stable Relationships: Yes Interval History Identifying Information CARLOS DOTY is a 56-year-old F who currently lives in alone in [place], has a history of a prior admit to in 2019, and was admitted on 11/01/21 09:31 on a 201 voluntary commitment for SI in the context of panic. She was boarding in the ED since presenting with SOB on 10/30/21. Chief Complaint "I can't talk to you, I'm trying to get over my divorce". Review of Systems Sleep Information Total Hours of Sleep: 3.6 Sleep Comments: pt on q-15 minute checks Meal Information Percent Meal Consumed - Breakfast: 50 Percent Meal Consumed - Lunch: 100 Percent Meal Consumed - Dinner: 100 Subjective Subjective Patient was seen & assessed and interval progress reviewed with nursing and social work. Patient is pacing in room crying and refused to engage with multiple staff. Will accept prn "but I need to do this without medication". Vacillates between reporting improvement/looking forward to trust meeting tomorrow and being overwhelmed by finality of her marriage separation/pending divorce. Missing plastic fork was never found. No evidence of self-injury. Physical Exam Psychiatric Orientation: alert and oriented x 3 Apperance: appropriately dressed and appropriately groomed Eye Contact: + poor eye contact Motor Behavior: no abnormal motor movements Speech: + abnormal rate/rhythm/volume of speech Affect: + depressed affect Mood: + depressed mood Thought Process: + circumstantial thought process Thought Content: reality based without delusions Suicidal Thoughts: denies suicidal plan (but won't answer re: suicidal thoughts) Homicidal Thoughts: denies homicidal thoughts Hallucinations: no auditory hallucinations and no visual hallucinations Cognition: language grossly intact; + attention not intact Estimated Intelligence: consistent with education level Insight: + limited insight Judgement: + limited judgement Vital Signs (Past 24 Hours) Last Vital Signs Temp 36.6 C 11/03/21 06:36 Pulse 99 H 11/03/21 06:37 Resp 16 11/03/21 06:36 BP 111/75 11/03/21 06:37 Pulse Ox 96 11/01/21 08:40 Results & Data ([facility]) Current Inpatient Medications Current Inpatient Medications: Current Inpatient Medications Acetaminophen (Acetaminophen 325 Mg Tab) 650 mg PO Q4H PRN PRN Reason: Headache or Minor Fever Stop: 12/01/21 09:29 Last Admin: 11/03/21 04:42 Dose: 650 mg Documented by: Al Hydrox/Mg Hydrox/Simethicone (Aluminum/Magnesium Susp 30 Ml Udc) 30 ml PO Q4H PRN PRN Reason: GI Upset Stop: 12/01/21 09:29 Last Admin: 11/03/21 09:51 Dose: 30 ml Documented by: Albuterol (Albuterol 0.083% Nebu Soln 3 Ml Vial) 2.5 mg NEB Q6R PRN; Protocol PRN Reason: Wheezing Stop: 12/01/21 09:52 Albuterol (Albuterol Hfa 8 Gm Inhaler) 1 puffs INH Q6 PRN PRN Reason: Wheezing Stop: 12/01/21 11:59 Aspirin (Aspirin 81 Mg Chew) 81 mg PO DAILY ISAIAH Stop: 12/02/21 08:59 Last Admin: 11/03/21 08:28 Dose: 81 mg Documented by: Bismuth Subsalicylate (Bismuth Subsalicylate Liqd 236 Ml) 15 ml PO PRN PRN PRN Reason: Loose Stool Stop: 12/01/21 09:29 Cyclobenzaprine HCl (Cyclobenzaprine Hcl 10 Mg Tab) 10 mg PO HS ISAIAH Stop: 12/01/21 21:59 Last Admin: 11/02/21 19:14 Dose: 10 mg Documented by: Famotidine (Famotidine 20 Mg Tab) 20 mg PO BID ISAIAH Stop: 12/01/21 20:59 Last Admin: 11/03/21 08:29 Dose: 20 mg Documented by: Furosemide (Furosemide 20 Mg Tab) 20 mg PO QAM ISAIAH Stop: 12/02/21 08:59 Last Admin: 11/03/21 08:29 Dose: 20 mg Documented by: Gabapentin (Gabapentin 100 Mg Cap) 100 mg PO TID ISAIAH Stop: 12/01/21 13:59 Last Admin: 11/03/21 08:30 Dose: 100 mg Documented by: Hydrocortisone (Hydrocortisone Hc 2.5% Crm 30gm Tube) 1 appln EXT QID PRN PRN Reason: Hemorrhoids Stop: 12/01/21 12:16 Hydroxyzine HCl (Hydroxyzine Hcl 25 Mg Tab) 50 mg PO HSZ PRN PRN Reason: Insomnia Stop: 12/01/21 09:29 Hydroxyzine HCl (Hydroxyzine Hcl 25 Mg Tab) 25 mg PO Q4H PRN PRN Reason: Anxiety Stop: 12/01/21 09:29 Last Admin: 11/01/21 14:24 Dose: 25 mg Documented by: Lamotrigine (Lamotrigine 25 Mg Tab) 150 mg PO QAM [facility] Stop: 12/02/21 08:59 Last Admin: 11/03/21 08:30 Dose: 150 mg Documented by: Lorazepam (Lorazepam 1 Mg Tab) 1 mg PO Q6 PRN PRN Reason: Anxiety/Agitation Stop: 12/03/21 11:07 Last Admin: 11/03/21 11:23 Dose: 1 mg Documented by: Magnesium Hydroxide (Magnesium Hydroxide Susp 30 Ml Udc) 30 ml PO DAILY PRN PRN Reason: Constipation Stop: 12/01/21 09:29 Mometasone Furoate/Formoterol Fumar (Dulera 100/5(Mometasone/Formoterol)) 2 ea INH BID ISAIAH Stop: 12/01/21 20:59 Last Admin: 11/03/21 08:31 Dose: 2 ea Documented by: Montelukast Sodium (Montelukast Sodium 10 Mg Tablet) 10 mg PO HS ISAIAH Stop: 12/01/21 21:59 Last Admin: 11/02/21 19:13 Dose: 10 mg Documented by: Naproxen (Naproxen 250 Mg Tab) 500 mg PO BID PRN PRN Reason: Pain Stop: 12/01/21 20:59 Last Admin: 11/03/21 09:51 Dose: 500 mg Documented by: Nystatin (Nystatin Powder 15gm Btl) 1 appln EXT BID PRN PRN Reason: Rash Stop: 12/01/21 12:16 Pantoprazole Sodium (Pantoprazole 40 Mg Tab) 40 mg PO QAM [facility] Stop: 12/02/21 08:59 Last Admin: 11/03/21 08:32 Dose: 40 mg Documented by: Potassium Chloride (Potassium Chloride Crtab 20 Meq Tabcr) 20 meq PO QAM [facility] Stop: 12/02/21 08:59 Last Admin: 11/03/21 08:32 Dose: 20 meq Documented by: Prazosin HCl (Prazosin Hcl 1 Mg Cap) 1 mg PO QAM [facility] Stop: 12/02/21 08:59 Last Admin: 11/03/21 08:32 Dose: 1 mg Documented by: Prazosin HCl (Prazosin Hcl 1 Mg Cap) 2 mg PO HS ISAIAH Stop: 12/01/21 21:59 Last Admin: 11/02/21 19:13 Dose: 2 mg Documented by: Rosuvastatin Calcium (Rosuvastatin Calcium 20 Mg Tab) 20 mg PO QAM ISAIAH Stop: 12/02/21 08:59 Last Admin: 11/03/21 08:33 Dose: 20 mg Documented by: Sodium Chloride (Sodium Chloride 0.65% Na Soln 45 Ml ([place])) 1 - 2 sprays NA PRN PRN PRN Reason: Nasal Dryness/Congestion Stop: 12/01/21 09:29 Tiotropium [place] (Tiotropium [place] 5 Puff/90 Mcg Inh) 1 puffs INH QAM ISAIAH Stop: 12/02/21 08:59 Last Admin: 11/03/21 08:33 Dose: 1 puffs Documented by: Venlafaxine HCl (Venlafaxine Hcl Xr 75 Mg Capxr) 75 mg PO QAM ISAIAH Stop: 12/02/21 08:59 Last Admin: 11/03/21 08:33 Dose: 75 mg Documented by: Vitamin D (Cholecalciferol 5,000 Units 125 Mcg Tab) 5,000 units PO QAM ISAIAH Stop: 12/02/21 08:59 Last Admin: 11/03/21 08:29 Dose: 5,000 units Documented by: Mental Health & Subst Abuse Tx Psychiatrist Name of Psychiatrist: [facility] [place] Psychiatrist's Date of Appointment with Psychiatrist: 11/12/21 Time of Appointment with Psychiatrist: 10:50 am Psychiatric Appointment Comment: [address], [place] [address] Therapist Name of Therapist: Room to Jovan Saldana Therapist's Date of Therapist Appointment: 11/05/21 Time of Therapist Appointment: 1:30 p.m. Therapy Appointment Comment: [place] [address] Art History Professor Name of Art History Professor: Sydnee Dixon Phone Number for Art History Professor: [phone] Date of Appointment with Art History Professor: 11/04/21 Time of Appointment with Art History Professor: 3 pm Case Management Appointment Comment: [address], [place] [address] Post Discharge Appointments Primary Care Physician Name Of Family Doctor: ASCENCION Suarez Primary Care Time of Appointment with PCP: Follow up as needed Provider Appointment Comment: [address] [facility] [place] [address] Contact Information Discharge Discharge Address: [address] [place] [address], [address], [place] [address] (1) UTI (urinary tract infection) Hematuria presence: without hematuria Urinary tract infection type: site unspecified Qualified Code(s): N39.0 - Urinary tract infection, site not specified (2) Asthma Asthma complication type: unspecified Asthma persistence: unspecified Asthma severity: mild Qualified Code(s): J45.909 - Unspecified asthma, uncomplicated
[2021-11-03] MEDS: MONTELUKAST SODIUM 10 MG TABLET PO SCH (21:06)
[2021-11-03] MEDS: CYCLOBENZAPRINE HCL 10 MG TAB PO SCH (21:06)
[2021-11-04] MEDS: CHOLECALCIFEROL 5,000 UNITS 125 MCG TAB PO SCH (07:38)
[2021-11-04] MEDS: ASPIRIN 81 MG CHEW PO SCH (07:38)
[2021-11-04] MEDS: FAMOTIDINE 20 MG TAB PO SCH ×2 (07:39→19:13)
[2021-11-04] MEDS: FUROSEMIDE 20 MG TAB PO SCH (07:39)
[2021-11-04] MEDS: lamoTRIgine 25 MG TAB PO SCH (07:40)
[2021-11-04] MEDS: GABAPENTIN 100 MG CAP PO SCH ×3 (07:40→19:14)
[2021-11-04] MEDS: DULERA INH SCH ×2 (07:41→19:14)
[2021-11-04] MEDS: PANTOprazole 40 MG TAB PO SCH (07:41)
[2021-11-04] MEDS: POTASSIUM CHLORIDE CRTAB 20 MEQ TABCR PO SCH (07:42)
[2021-11-04] MEDS: PRAZOSIN HCL 1 MG CAP PO SCH (07:42)
[2021-11-04] MEDS: ROSUVASTATIN CALCIUM 20 MG TAB PO SCH (07:43)
[2021-11-04] MEDS: TIOTROPIUM BROMIDE 5 PUFF/90 MCG INH INH SCH (07:43)
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
[2021-11-04] MEDS: LORazepam 0.5 MG TAB PO PRN (13:50)
[2021-11-04] MEDS: LORazepam 1 MG TAB PO PRN (17:23)
[2021-11-04] MEDS ORDERED: MONTELUKAST SODIUM 10 MG TABLET PO SCH (19:00)
[2021-11-04] MEDS ORDERED: PRAZOSIN HCL 1 MG CAP PO SCH (19:00)
[2021-11-04] MEDS ORDERED: CYCLOBENZAPRINE HCL 10 MG TAB PO SCH (19:00)
[2021-11-05] MEDS ORDERED: FUROSEMIDE 20 MG TAB PO SCH (07:00)
[2021-11-05] MEDS ORDERED: PANTOprazole 40 MG TAB PO SCH (07:00)
[2021-11-05] MEDS ORDERED: CHOLECALCIFEROL 5,000 UNITS 125 MCG TAB PO SCH (07:00)
[2021-11-05] MEDS ORDERED: PRAZOSIN HCL 1 MG CAP PO SCH (07:00)
[2021-11-05] MEDS ORDERED: ASPIRIN 81 MG ECTAB PO SCH ×2 (07:00→09:00)
[2021-11-05] MEDS ORDERED: lamoTRIgine 25 MG TAB PO SCH (07:00)
[2021-11-05] MEDS ORDERED: lamoTRIgine 100 MG TAB PO SCH (07:00)
[2021-11-05] MEDS ORDERED: POTASSIUM CHLORIDE CRTAB 20 MEQ TABCR PO SCH (07:00)
[2021-11-05] MEDS ORDERED: ROSUVASTATIN CALCIUM 20 MG TAB PO SCH (07:00)
[2021-11-05] MEDS ORDERED: TIOTROPIUM BROMIDE 5 PUFF/90 MCG INH INH SCH (07:00)
[2021-11-05] MEDS: DULERA INH SCH (09:06)
[2021-11-05] MEDS: FAMOTIDINE 20 MG TAB PO SCH (09:08)
[2021-11-05] MEDS: GABAPENTIN 100 MG CAP PO SCH ×2 (09:09→12:44)
[2021-11-05] MEDS: LORazepam 1 MG TAB PO PRN (09:16)
[2021-11-05] MEDS: hydrOXYzine HCl 25 MG TAB PO PRN (10:39)
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
[2021-11-05] MEDS: LORazepam 0.5 MG TAB PO PRN (12:44)
== END 2021-11-05 13:24 | disposition home or self-care (01) | DRG 881 ==
LOC: ED 10:55 → 3S 11-01 09:23